=== PATIENT | male | born 1960 | race Caucasian/White ===

== ENCOUNTER 2021-06-14 08:05 | Outpatient (CLI) | payer BC, SELFPAY ==
[2021-06-14 10:20] LABS: ALB/GLOB Ratio 1.3 RATIO (0.9-2.4); AST(SGOT) 20 U/L (15-37); Alanine Aminotransfer ALT/SGPT 24 U/L (16-61); Albumin, Serum 4.3 g/dL (3.2-5.0); Alkaline Phosphatase 117 U/L (45-117); Anion Gap 3 (5-15); BUN 15 mg/dL (7-18); BUN/Creat Ratio 14.7 RATIO (10-20); CRP < 2.90 mg/L (0.0-3.0); Calcium,Total 8.9 mg/dL (8.5-10.1); Chloride 105 mmol/L (98-107); Creatinine, Serum 1.02 mg/dL (0.70-1.30); EST Glomerular Filtration Rate 78 mL/min (>60); Est Glom Filt Rate - Afr Amer 95 mL/min (>60); Globulin 3.4 g/dL (2.2-4.2); Glucose 95 mg/dL (74-106); Potassium 3.6 mmol/L (3.5-5.1); Protein, Total 7.7 g/dL (6.4-8.2); Rheumatoid Factor < 10.0 IU/mL (<15); Sodium Level 139 mmol/L (136-145)
[2021-06-14 11:00] LABS: Hepatitis B Surface Antibody Reactive; Hepatitis B Surface Antigen Non-Reactive (Nonreactive); Hepatitis C Antibody Non-Reactive (Nonreactive)
[2021-06-14 12:32] LABS: Erythrocyte Sedimentation Rate 14 mm/hr (0-20)
[2021-06-14 12:34] LABS: Absolute Lymphocyte Count 1.24 X10^3/uL (0.83-4.51); Absolute Neutrophil Count 3.7 X10^3/uL (2.0-7.7); Basophil# 0.04 X10^3/uL; Basophil% 0.7 % (0-1); Eosinophil# 0.18 X10^3/uL; Eosinophils% 3.1 % (0-5); Hematocrit 44.7 % (40-54); Hemoglobin 14.7 g/dL (13.0-16.5); Lymphocyte # 1.24 X10^3/ul (0.83-4.51); Lymphocyte % 21.3 % (19-41); Mean Corp Hgb Conc 32.9 g/dL (32-36); Mean Corpuscular Hgb 29.1 pg (27.0-32.0); Mean Corpuscular Volume 88.3 fL (80-94); Mean Platelet Vol. 11.5 fl (6.2-12.0); Monocyte# 0.67 X10^3/uL; Monocyte% 11.5 % (0-10); NRBC Flagged by Analyzer 0 % (0-5); Neutrophil # 3.67 X10^3/uL (2.7-7.7); Neutrophil % 62.9 % (47-70); Platelet Count 280 K/mm3 (150-450); RBC Distribution Width CV 14.1 % (11.6-14.6); RBC Distribution Width SD 45.4 fl (35.1-43.9); Red Blood Count 5.06 M/mm3 (4.6-6.2); White Blood Count 5.8 K/mm3 (4.4-11.0)
[2021-06-15 19:28] LABS: ANTINUCLEAR ANTIBODIES DIRECT Negative (Negative)
[2021-06-18 09:26] LABS: CCP IgG Antibodies 11 units (0-19)
== END 2021-06-14 23:59 | disposition home or self-care (01) ==
LOC: MTLAB 08:09
PROVIDERS: PCP Student in an Organized Health Care Education/Training Program; Referring Provider Internal Medicine Rheumatology; Visit Provider Internal Medicine Rheumatology
DX: M06.4 Inflammatory polyarthropathy (principal); M19.041 Primary osteoarthritis, right hand; M17.0 Bilateral primary osteoarthritis of knee; M18.0 Bilateral primary osteoarthritis of first carpometacarpal joints; M16.0 Bilateral primary osteoarthritis of hip; M47.897 Other spondylosis, lumbosacral region; I10 Essential (primary) hypertension
CPT/HCPCS: 36415; 80053; 85025; 85652; 86038; 86140; 86200; 86431; 86706; 86803; 87340

== ENCOUNTER → 2021-08-29 | Outpatient (CLI) | payer BC, SELFPAY ==
[2021-08-29 10:08] LABS: Absolute Lymphocyte Count 1.38 X10^3/uL (0.83-4.51); Absolute Neutrophil Count 3.1 X10^3/uL (2.0-7.7); Basophil# 0.03 X10^3/uL; Basophil% 0.6 % (0-1); Eosinophils% 3.7 % (0-5); Hematocrit 42.3 % (40-54); Lymphocyte # 1.38 X10^3/ul (0.83-4.51); Lymphocyte % 25.8 % (19-41); Mean Corp Hgb Conc 33.1 g/dL (32-36); Mean Corpuscular Hgb 29.3 pg (27.0-32.0); Mean Corpuscular Volume 88.5 fL (80-94); Mean Platelet Vol. 10.7 fl (6.2-12.0); Monocyte% 11.2 % (0-10); NRBC Flagged by Analyzer 0 % (0-5); Neutrophil # 3.07 X10^3/uL (2.7-7.7); Neutrophil % 57.6 % (47-70); Platelet Count 252 K/mm3 (150-450); RBC Distribution Width CV 14.3 % (11.6-14.6); Red Blood Count 4.78 M/mm3 (4.6-6.2); White Blood Count 5.3 K/mm3 (4.4-11.0)
[2021-08-29 10:37] LABS: ALB/GLOB Ratio 1.1 RATIO (0.9-2.4); AST(SGOT) 20 U/L (15-37); Alanine Aminotransfer ALT/SGPT 28 U/L (16-61); Albumin, Serum 3.6 g/dL (3.2-5.0); Alkaline Phosphatase 94 U/L (45-117); Anion Gap 4 (5-15); BUN 19 mg/dL (7-18); BUN/Creat Ratio 17.8 RATIO (10-20); Calcium,Total 8.7 mg/dL (8.5-10.1); Chloride 104 mmol/L (98-107); Creatinine, Serum 1.07 mg/dL (0.70-1.30); EST Glomerular Filtration Rate 74 mL/min (>60); Est Glom Filt Rate - Afr Amer 90 mL/min (>60); Globulin 3.4 g/dL (2.2-4.2); Glucose 92 mg/dL (74-106); Potassium 3.8 mmol/L (3.5-5.1); Sodium Level 139 mmol/L (136-145)
== END | disposition home or self-care (01) ==
LOC: MTLAB 09:10
PROVIDERS: PCP Student in an Organized Health Care Education/Training Program; Referring Provider Internal Medicine Rheumatology; Visit Provider Internal Medicine Rheumatology
DX: M06.4 Inflammatory polyarthropathy (principal); M19.041 Primary osteoarthritis, right hand; M17.0 Bilateral primary osteoarthritis of knee; M18.0 Bilateral primary osteoarthritis of first carpometacarpal joints; M16.0 Bilateral primary osteoarthritis of hip; M47.897 Other spondylosis, lumbosacral region; I10 Essential (primary) hypertension; F41.9 Anxiety disorder, unspecified; Z79.899 Other long term (current) drug therapy
CPT/HCPCS: 36415; 80053; 85025

== ENCOUNTER → 2021-11-01 | Outpatient (CLI) | payer BC, SELFPAY ==
[2021-11-01 14:58] LABS: Absolute Lymphocyte Count 1.52 X10^3/uL (0.83-4.51); Absolute Neutrophil Count 5.9 X10^3/uL (2.0-7.7); Basophil# 0.05 X10^3/uL; Basophil% 0.6 % (0-1); Eosinophil# 0.15 X10^3/uL; Eosinophils% 1.8 % (0-5); Hematocrit 43.6 % (40-54); Hemoglobin 14.6 g/dL (13.0-16.5); Lymphocyte # 1.52 X10^3/ul (0.83-4.51); Lymphocyte % 17.8 % (19-41); Mean Corp Hgb Conc 33.5 g/dL (32-36); Mean Corpuscular Hgb 30.6 pg (27.0-32.0); Mean Corpuscular Volume 91.4 fL (80-94); Monocyte# 0.79 X10^3/uL; Monocyte% 9.3 % (0-10); NRBC Flagged by Analyzer 0 % (0-5); Neutrophil # 5.93 X10^3/uL (2.7-7.7); Neutrophil % 69.6 % (47-70); Platelet Count 312 K/mm3 (150-450); RBC Distribution Width CV 14.7 % (11.6-14.6); RBC Distribution Width SD 49.2 fl (35.1-43.9); Red Blood Count 4.77 M/mm3 (4.6-6.2); White Blood Count 8.5 K/mm3 (4.4-11.0)
[2021-11-01 15:19] LABS: ALB/GLOB Ratio 1.2 RATIO (0.9-2.4); AST(SGOT) 17 U/L (15-37); Alanine Aminotransfer ALT/SGPT 28 U/L (16-61); Albumin, Serum 4.1 g/dL (3.2-5.0); Alkaline Phosphatase 105 U/L (45-117); Anion Gap 5 (5-15); BUN 18 mg/dL (7-18); BUN/Creat Ratio 16.5 RATIO (10-20); Calcium,Total 9.2 mg/dL (8.5-10.1); Chloride 102 mmol/L (98-107); Creatinine, Serum 1.09 mg/dL (0.70-1.30); EST Glomerular Filtration Rate 72 mL/min (>60); Est Glom Filt Rate - Afr Amer 88 mL/min (>60); Globulin 3.3 g/dL (2.2-4.2); Glucose 89 mg/dL (74-106); Potassium 4.1 mmol/L (3.5-5.1); Protein, Total 7.4 g/dL (6.4-8.2); Sodium Level 138 mmol/L (136-145)
== END | disposition home or self-care (01) ==
LOC: MTLAB 11:48
PROVIDERS: PCP Student in an Organized Health Care Education/Training Program; Referring Provider Internal Medicine Rheumatology; Visit Provider Internal Medicine Rheumatology
DX: M06.4 Inflammatory polyarthropathy (principal); Z79.899 Other long term (current) drug therapy; M19.041 Primary osteoarthritis, right hand; M17.0 Bilateral primary osteoarthritis of knee; M18.0 Bilateral primary osteoarthritis of first carpometacarpal joints; M16.0 Bilateral primary osteoarthritis of hip; M47.897 Other spondylosis, lumbosacral region; I10 Essential (primary) hypertension; F41.9 Anxiety disorder, unspecified; F32.A Depression, unspecified
CPT/HCPCS: 36415; 80053; 85025

== ENCOUNTER → 2021-12-24 | Outpatient (CLI) | payer BC, SELFPAY ==
[2021-12-24 12:15] LABS: Absolute Lymphocyte Count 1.45 X10^3/uL (0.83-4.51); Absolute Neutrophil Count 4.9 X10^3/uL (2.0-7.7); Basophil# 0.04 X10^3/uL; Basophil% 0.6 % (0-1); Eosinophil# 0.15 X10^3/uL; Eosinophils% 2.1 % (0-5); Hematocrit 43.7 % (40-54); Lymphocyte # 1.45 X10^3/ul (0.83-4.51); Lymphocyte % 20.3 % (19-41); Mean Corpuscular Hgb 29.4 pg (27.0-32.0); Mean Corpuscular Volume 91.8 fL (80-94); Mean Platelet Vol. 11.3 fl (6.2-12.0); Monocyte# 0.57 X10^3/uL; NRBC Flagged by Analyzer 0 % (0-5); Neutrophil # 4.89 X10^3/uL (2.7-7.7); Neutrophil % 68.2 % (47-70); Platelet Count 268 K/mm3 (150-450); RBC Distribution Width CV 14.2 % (11.6-14.6); RBC Distribution Width SD 47.7 fl (35.1-43.9); Red Blood Count 4.76 M/mm3 (4.6-6.2); White Blood Count 7.2 K/mm3 (4.4-11.0)
[2021-12-24 12:53] LABS: ALB/GLOB Ratio 1.2 RATIO (0.9-2.4); AST(SGOT) 22 U/L (15-37); Alanine Aminotransfer ALT/SGPT 31 U/L (16-61); Alkaline Phosphatase 102 U/L (45-117); Anion Gap 6 (5-15); BUN 21 mg/dL (7-18); BUN/Creat Ratio 18.9 RATIO (10-20); Calcium,Total 9.1 mg/dL (8.5-10.1); Chloride 102 mmol/L (98-107); Creatinine, Serum 1.11 mg/dL (0.70-1.30); EST Glomerular Filtration Rate 71 mL/min (>60); Est Glom Filt Rate - Afr Amer 86 mL/min (>60); Globulin 3.3 g/dL (2.2-4.2); Glucose 89 mg/dL (74-106); Potassium 4.2 mmol/L (3.5-5.1); Protein, Total 7.3 g/dL (6.4-8.2); Sodium Level 138 mmol/L (136-145)
== END | disposition home or self-care (01) ==
LOC: MTLAB 10:45
PROVIDERS: PCP Student in an Organized Health Care Education/Training Program; Referring Provider Internal Medicine Rheumatology; Visit Provider Internal Medicine Rheumatology
DX: M06.4 Inflammatory polyarthropathy (principal); Z79.899 Other long term (current) drug therapy
CPT/HCPCS: 36415; 80053; 85025

== ENCOUNTER 2023-01-05 14:48 | Emergency (ER) | payer MEDICARE, SELFPAY ==
[2023-01-05 14:50] VITALS: BP 139/76; PULSE 78; RESP 14; TEMP 36.4; O2SAT 98; BMI 33.4
--- NOTE | 2023-01-05 15:03 | CT_ITS ---
INDICATION: injury EXAMINATION: CT CERVICAL SPINE - CT Spine Cervical W/O Contrast Injection TECHNIQUE: Helically acquired images were obtained of the cervical spine. 2D reformatted images were reviewed. A radiation dose optimization technique was used for this scan. IV Contrast dosage and agent: None. RADIATION DOSAGE (If Supplied By Facility): CTDIvol = ( 19.87 ) mGy, DLP = ( 335.69 ) mGycm COMPARISON: No relevant prior comparison study available FINDINGS: VERTEBRAE: No fracture or traumatic subluxation. No discrete lytic or blastic abnormality. Mild cervical kyphosis. Normal craniocervical junction and cervicothoracic junction. DISCS and SPINAL CANAL: Loss of disc space height throughout the cervical spine spine, most likely from seat 3 inferiorly, with accompanying endplate osteophytes and facet arthropathy leading to varying degrees of foraminal narrowing throughout. No critical stenosis. NECK SOFT TISSUES: No prevertebral soft tissue swelling. There is no cervical adenopathy. LUNG APICES: Clear. CT/Spine Cervical without Contras IMPRESSION: No evidence of acute cervical spinal fracture or spondylolisthesis. Cervical spondylosis as described. Electronically Signed: Hong Carmen MD at 15:55 EDT ,
--- NOTE | 2023-01-05 15:03 | CT_ITS ---
INDICATION: injury EXAMINATION: CT BRAIN - CT Head or Brain W/O Contrast Injection TECHNIQUE: Multiple axial images were obtained of the head without intravenous contrast. A radiation dose optimization technique was used for this scan. IV Contrast dosage and agent: None. RADIATION DOSAGE (If Supplied By Facility): CTDIvol = ( 47.06 ) mGy, DLP = ( 819.74 ) mGycm COMPARISON: No relevant prior comparison study available FINDINGS: BRAIN PARENCHYMA: No intra- or extra-axial hemorrhage. No evidence of acute infarct. No intracranial mass or mass effect. There is preservation of the kidd/white matter interface. Posterior fossa structures are unremarkable. No parenchymal abnormality. CSF SPACES: No cerebral volume loss. No hydrocephalus. Basal cisterns are patent. CALVARIUM, SKULL BASE, PARANASAL SINUSES AND MASTOID AIR CELLS: The mastoid air cells and visualized paranasal sinuses are well aerated. The calvarium is intact. No discrete lytic or blastic abnormalities. ORBITS: Both globes, extraocular muscles, optic nerves and retrobulbar fat appear unremarkable. CT/Brain/Head without Contrast IMPRESSION: No acute intracranial finding. Electronically Signed: Hong Carmen MD at 15:53 EDT ,
--- NOTE | 2023-01-05 15:05 | EDS_ITS ---
HPI History of Present Illness Chief Complaint: Fall Informant: patient and spouse/S.O. Onset/Context/Timing Onset: Today Narrative Narrative: Patient presents after a fall at home. He was trying to pull [employer] fence out of the ground when he lost his balance and fell forward striking his head against the side of the house. He does have a headache and some neck pain. He also injured his left shoulder and thinks he may have dislocated it. He is right-hand dominant. He is not on anticoagulants. [facility] Medical History (Updated 01/05/23 @ 16:[address] Beth Marley MD) Hypertension Migraines Home Medications hydrocodone-acetaminophen 5-325mg 5mg-325mg 1 tab PO Q6H PRN PRN Pain 3 days #12 TABLETS 01/05/23 [Rx Last Taken Unknown] Allergy/AdvReac Type Severity Reaction Status Date / Time No Known Allergies Allergy Verified 01/05/23 14:50 Social History Smoking Status: Never smoker ROS ROS ED Constitutional Constitutional ED: Denies chills or fever(s) Eyes Eyes: Denies discharge from eye(s) ENT ENT ED: Denies discharge from eye(s), rhinorrhea or sore throat Cardiovascular Cardiovascular: Denies chest pain or palpitations Respiratory/Chest Respiratory/Chest: Denies cough or dyspnea Gastrointestinal Gastrointestinal: Denies abdominal pain, nausea or vomiting Musculoskeletal Musculoskeletal: Reports extremity pain and neck pain; Denies back pain Integumentary Denies Abrasions or rash Neurologic Neurologic: Reports headache(s); Denies weakness Psychiatric Psychiatric: Denies anxiety or depression Allergic/Immunologic Allergic/Immunologic ED: Denies lip swelling or urticaria EXAM Physical Exam Const Vital Signs: 01/05/23 14:50 01/05/23 15:17 Temperature 97.6 F L Temperature Source Temporal Pulse Rate 78 Respiratory Rate 14 Respiratory Effort Normal Blood Pressure 139/76 H Blood Pressure Mean 97 Pulse Ox 98 Oxygen Delivery Method Room Air Positive well nourished and well developed General Appearance ED: well developed HEENT atraumatic Eyes PERRL and EOMs intact bilaterally Chest Wall inspection of chest normal and palpation of chest normal Resp normal respiratory effort and clear to auscultation bilaterally Cardio regular rhythm Rate: regular rate GI non-tender Palpation: soft Back/Spine Back/Spine Narrative: Mild C-spine tenderness. No step-offs. No thoracic or lumbar tenderness. Extremity Extremity Narrative: Tenderness to the left shoulder and humeral head appears to be anteriorly located. Able to wiggle fingers on left hand. Good cap refill and sensation. Neuro oriented x3 Psych mental status grossly normal Skin no rashes or lesions noted MDM MDM MDM Narrative Medical decision making narrative: IV line established. Patient given morphine and Zofran for pain control. Left shoulder x-rays obtained to evaluate for fracture, dislocation. CT scan of the head and C-spine obtained to evaluate for fracture, bleed. Radiography Diagnostic Testing: Clinical Impression(s) from Imaging Studies Brain CT 01/05/23 15:03 IMPRESSION: No acute intracranial finding. Electronically Signed: Hong Carmen MD at 15:53 EDT , Cervical Spine CT 01/05/23 15:03 IMPRESSION: No evidence of acute cervical spinal fracture or spondylolisthesis. Cervical spondylosis as described. Electronically Signed: Hong Carmen MD at 15:55 EDT , Shoulder X-Ray 01/05/23 15:38 IMPRESSION: No fracture or malalignment. Degenerative changes as described. Electronically Signed: Hong Carmen MD at 16:08 EDT , Treatment and Re-Evaluation Narrative: CT scan of the head and neck read by radiology reveals no evidence of acute fracture or bleed. Left shoulder x-rays per my interpretation reveal no obvious dislocation or fracture. Radiology interpretation is reviewed and agrees. Patient be given a prescription for [place]. He will be placed in a sling and swath. He will follow-up with [facility] who he has seen in the past. Return instructions given. Discharge Plan Triage Chief Complaint: Fall ED Provider: Beth Marley Dx/Rx/DC Orders Clinical Impression: CHI (closed head injury), Fall, Sprain of left shoulder Instructions: ED Mechanical Fall, ED Head Injury (Adult), ED Shoulder Sprain Prescriptions: New hydrocodone-acetaminophen 5-325 mg tablet 1 tab PO Q6H PRN PRN (Reason: Pain) 3 Days Qty: 12 0RF Primary Care Provider: Robbie Zuniga Referrals: Robbie Zuniga DO [Primary Care Provider] - Joey Felix MD [Med Staff - Active Staff] - 5-7 Days Disposition Disposition: Home, Self Care
[2023-01-05] MEDS: Ondansetron 4 MG/2 ML Vial IV (15:20)
[2023-01-05] MEDS: Morphine 4 MG/ML Syringe IV (15:20)
--- NOTE | 2023-01-05 15:38 | RAD_ITS ---
INDICATION: injury EXAMINATION/TECHNIQUE: X-RAY - LEFT XR Shoulder Min 2 Views 4 VIEWS COMPARISON: No relevant prior comparison study available FINDINGS: SOFT TISSUES: No soft tissue swelling or gas. No radiopaque foreign body. BONES/JOINTS: No acute fracture or subluxation.. Normal alignment. Moderate marginal osteophyte of the acromioclavicular joint. Small marginal sides of the glenohumeral joint.. No sclerotic or destructive changes observed. RAD/Shoulder min 2 Views IMPRESSION: No fracture or malalignment. Degenerative changes as described. Electronically Signed: Hong Carmen MD at 16:08 EDT ,
== END 2023-01-05 16:51 | disposition home or self-care (01) ==
PROVIDERS: Emergency Provider Emergency Medicine; PCP Student in an Organized Health Care Education/Training Program; Visit Provider Emergency Medicine
DX: S09.90XA Unspecified injury of head, initial encounter (principal); I10 Essential (primary) hypertension; S43.402A Unspecified sprain of left shoulder joint, initial encounter; W01.198A Fall on same level from slipping, tripping and stumbling with subsequent striking against other object, initial encounter; Y93.89 Activity, other specified; Y92.008 Other place in unspecified non-institutional (private) residence as the place of occurrence of the external cause
CPT/HCPCS: 70450; 72125; 73030; 99282; J2405

== ENCOUNTER 2024-04-29 21:41 | Inpatient (IN) | payer MEDICARE, SELFPAY ==
[2024-04-29 21:41] VITALS: BP 148/77; PULSE 95; RESP 20; TEMP 36.6; O2SAT 94; BMI 39.2
--- NOTE | 2024-04-29 22:05 | EKG12_ITS ---
Test Reason : SOB Blood Pressure : */* mmHG Vent. Rate : 87 BPM Atrial Rate : 87 BPM P-R Int : 130 ms QRS Dur : 88 ms QT Int : 328 ms P-R-T Axes : 45 26 68 degrees QTcB Int : 394 ms Normal sinus rhythm Nonspecific T wave abnormality Abnormal ECG Confirmed by HUSEYIN HOLRBOOK, RAMESH ([id number]), marketing editor MERY STANLEY ([id number]) on 05/02/2024 7:05:56 AM Referred By: Hong Chiu Confirmed By: RAMESH FONTANEZ MD
--- NOTE | 2024-04-29 22:06 | EDS_ITS ---
HPI History of Present Illness Chief Complaint: Asthma Informant: patient and spouse/S.O. Narrative Narrative: 64-year-old male presents saying I am having an asthma attack. However after further discussion, I discovered that the patient has never been diagnosed with asthma. He also states he has never been diagnosed with any other lung or heart problems that he knows of. states for the past week he has been wheezing, it has been worse in the past 3 days especially today with any exertion. He states it is worse with lying down as well. He denies dyspnea, fevers, chills, or feeling like he has a cold, although he states he occasionally has a non productive cough. He then states this is the worst it has ever been. Therefore I asked if he has had this for a long time, he states off and on. He has never seen a physician for this issue. He states yesterday he had a right shoulder replacement. He states his wheezing was an issue in the operating room before they sedated him and they needed to give him oxygen and do some things to get him safely sedated. She states after surgery for the rest of the day yesterday, his breathing was not as bad, but today it is worse again. No other new symptoms no leg edema, no GI symptoms or abdominal pain. [facility] Medical History Anxiety disorder, unspecified MDD (major depressive disorder) Skin cancer Osteoarthritis Hearing problem Bone fracture History of back problems Arthritis Alcohol abuse Migraines Hypertension Home Medications ?Medication ?Instructions ?Recorded ?Last Taken ?Type gabapentin 100 mg capsule 100 mg PO TID 08/12/23 Unkno wn History gabapentin 800 mg tablet 800 mg PO TID 08/12/23 Unkno wn History losartan 100 1 tab PO QDAY 08/12/23 Unkno wn History mg-hydrochlorothiazide 25 mg tablet meclizine 12.5 mg tablet 12.5 mg PO DAILY PRN vertigo 08/12/23 Unknown History meloxicam 15 mg tablet 15 mg PO 08/12/23 Unknown Hi story tizanidine 4 mg tablet 4 mg PO TID 08/12/23 Unknown History bupropion HCl 100 mg tablet 200 mg (2 x 100 mg) PO BID #120 10/21/23 Unknown Rx tabs duloxetine 30 mg capsule,delayed 30 mg PO QDAY 4 Unknown History release duloxetine 60 mg capsule,delayed 60 mg PO QDAY 4 Unknown History release mirtazapine 15 mg tablet 15 mg PO QHS #30 tabs Unknown Rx albuterol sulfate 90 mcg/actuation inhalation 04/29/24 Unknown History aerosol inhaler aspirin 81 mg tablet,delayed 81 mg PO DAILY 04/29/24 U nknown History release (Adult Aspirin Regimen) doxycycline monohydrate 100 mg 100 mg PO Q12H 04/29/24 Unknown History capsule mupirocin 2 % topical ointment topical 04/29/24 Unknow n History oxycodone 5 mg tablet 5 mg PO 04/29/24 Unknown His tory tamsulosin 0.4 mg capsule 0.4 mg PO QHS 04/29/24 Unkno wn History Allergy/AdvReac Type Severity Reaction Status Date / Time No Known Allergies Allergy Verified 04/29/24 21:45 Family History Other Alcoholism Arthritis Cancer Depression Mental disorder Myocardial infarction Respiratory disease Social History Smoking Status: Never smoker alcohol intake: former substance use type: does not use ROS ROS ED Constitutional Constitutional ED: Denies chills or fever(s) Eyes Eyes: Denies change in vision or diplopia ENT ENT ED: Denies ear pain, rhinorrhea or sore throat Cardiovascular Cardiovascular: Reports orthopnea; Denies chest pain or palpitations Respiratory/Chest Respiratory/Chest: Reports dyspnea, dyspnea on exertion and orthopnea; Denies cough Gastrointestinal Gastrointestinal: Denies abdominal pain, diarrhea, nausea or vomiting Genitourinary Genitourinary ED: Denies dysuria or hematuria Musculoskeletal Musculoskeletal: Denies back pain or neck pain Integumentary Denies abscess or rash Neurologic Neurologic: Denies headache(s), paresthesias or weakness EXAM Physical Exam Const Vital Signs: 04/29/24 21:41 04/29/24 22:13 04/29/24 23:01 Temperature 97.8 F Temperature Source Oral Pulse Rate 95 92 Respiratory Rate 20 H 20 H Respiratory Effort Respiratory Depth Respiratory Pattern Tachypnea Blood Pressure 148/77 H Blood Pressure Mean 100 Pulse Ox 94 94 Oxygen Delivery Method Room Air Room Air Oxygen Flow Rate (L/min) 04/29/24 23:04 04/29/24 23:41 04/30/24 00:18 Temperature Temperature Source Pulse Rate 84 Respiratory Rate 18 Respiratory Effort Normal Respiratory Depth Normal Respiratory Pattern Normal Blood Pressure 128/66 H Blood Pressure Mean 86 Pulse Ox 90 87 Oxygen Delivery Method Room Air Room Air Room Air Oxygen Flow Rate (L/min) 04/30/24 00:23 04/30/24 00:24 Temperature Temperature Source Pulse Rate 84 Respiratory Rate 15 Respiratory Effort Respiratory Depth Respiratory Pattern Blood Pressure 154/64 H Blood Pressure Mean 94 Pulse Ox 96 95 Oxygen Delivery Method Nasal Cannula Venturi Mask Oxygen Flow Rate (L/min) 2 2 Positive well nourished and well developed General Appearance ED: well developed and NAD HEENT Reports moist mucous membranes normocephalic and atraumatic Eyes PERRL and EOMs intact bilaterally Neck full ROM, no lymphadenopathy, supple, no meningeal signs and no JVD Resp normal respiratory effort and clear to auscultation bilaterally Cardio regular rate, regular rhythm and no murmurs Rate: Negative for bradycardia or tachycardic GI non-tender and non-distended Auscultation: normoactive bowel sounds Palpation: soft Back/Spine no CVA tenderness General Back: other FROM Extremity normal to inspection General Extremety ED: Negative for edema, pulses abnormal or tenderness General Extremity: Negative for edema or pulses abnormal Neuro oriented x3, CN's II-XII intact bilaterally and no sensory deficits noted Sensorium / Orientation: awake and alert Motor Exam: strength 5/5 throughout Skin no rashes or lesions noted and no wounds MDM MDM MDM Narrative Medical decision making narrative: The patient's lungs are clear and other than mild hypertension, for which she takes medication, his vital signs are normal here at rest and he is conversive in full sentences. I asked him if he felt like he was wheezing right now, he states no not unless he walks. I advised him that the etiology of this is unclear, but it may not be asthma as he was calling that since he has never been diagnosed with asthma before, although reactive airway disease is in the differential. I advised him that I recommend testing tonight for cardiac etiologies, including blood work, and to include evaluation for possible congestive heart failure, as well as pulmonary embolus for which she does not have specific risk but again his lungs are clear. His response to all of this was I do not need testing for any of that since I just had all of that tested for. Patient is referring to preoperative medical clearance testing. He understands that we are not doing the same testing. I did look for that testing and I am not able to find it; even when entering his middle initial, there are so many Butch Jud[employer] and [employer] that it stops listing when he gets to 200 and he is not in that list. The patient's chest x-ray is clearly abnormal. Appears to show pulmonary edema versus bibasilar infiltrates on my interpretation, 2 views. Radiology in agreement, basically it is limited due to poor inspiration, and they do not appear to be able to narrow down. His kidney function is down compared to his past numbers. His troponin is normal his EKG looks fine. I ordered a BNP but the labs machine is down and they are not able to run it tonight. His EGFR is just high enough to be able to perform CT angiography since his D-dimer is elevated, which may be due to PE or due to surgery. He presumably has not had acute CHF if he just had a presurgical echocardiogram that was unremarkable, so I am going to give him a liter of fluids, and perform CT angiography of the chest, to rule out PE and to hopefully obtain more information to see if it helps us determine why his x-ray is abnormal and why he is dyspneic. Meanwhile his pulse ox is 88% on room air, with walking 10-20 feet, he stays around 90% does not go higher than that. He is not on home oxygen. We put him on 2 L here. I reviewed the CTA of the chest as well as results which I agree with, it favors atelectasis, no PE, no pneumonia, and less likely CHF. Later he ambulated about 40 feet to the bathroom and was hypoxic at 88% on room air and very wheezy. He said the albuterol aerosol given earlier helped some giving him another and I discussed with hospitalist for admission because he is hypoxic and has ASHLEY. He is in agreement and request that we add a respiratory viral panel and start him on steroids which was done as well. History & Record Review Additional record(s) reviewed:: No prior records (records not available in [employer]) Lab Data Attestation: I reviewed the patient's lab results. Labs: Laboratory Results - last 24 hr 01/31/25 22:35 WBC 10.9 RBC 4.05 L Hgb 11.7 L Hct 35.3 L MCV 87.2 MCH 28.9 MCHC 33.1 RDW Std Deviation 44.4 H RDW Coeff of [place] 13.9 Plt Count 232 MPV 10.5 Immature Gran % (Auto) 1.000 H Neut % (Auto) 73.6 H Lymph % (Auto) 14.1 L [place] % (Auto) 10.2 H Eos % (Auto) 0.6 Baso % (Auto) 0.5 Absolute Neuts (auto) 8.0 H Absolute Lymphs (auto) 1.54 Nucleated RBC % 0 D-Dimer Quant (PE/DVT) 1.02 H* Sodium 139 Potassium 3.4 L Chloride 105 Carbon Dioxide 27.0 Anion Gap 8 BUN 38 H Creatinine 1.95 H Estim Creat Clear Calc 46.32 Est GFR (MDRD) Af Amer 44 L Est GFR (MDRD) Non-Af 37 L BUN/Creatinine Ratio 19.5 Glucose 122 H Calcium 8.3 L Troponin I High Sens 24 Radiography Diagnostic Testing: Clinical Impression(s) from Imaging Studies Chest X-Ray 04/29/24 22:40 IMPRESSION: As above. Reading Location: [facility] Chest CTA 04/29/24 23:45 IMPRESSION: 1. No evidence of pulmonary embolism. 2. Elevated right hemidiaphragm. 3. Intermediate lung volumes. Patchy airspace disease within the right lower lobe, suggest atelectasis. 4. Evidence of recent shoulder arthroplasty on the right, as described. 5. Additional findings, as detailed above One or more dose reduction techniques were used (e.g., Automated exposure control, adjustment of the mA and/or kV according to patient size, use of iterative reconstruction technique). Reading [facility] Rhythm Strip Rhythm Strip: Sinus Rhythm Rate: 90 Ectopy: None EKG Initial EKG: Attestation: I personally reviewed and interpreted this EKG as follows: Interpretation: Sinus Rhythm, No Acute Injury Pattern and Non-Specific ST Changes Comments: Nml axis & intervals; nml EKG Management Discussion w/another healthcare provider: Hospitalist Discharge Plan Triage Chief Complaint: Asthma ED Provider: Chuck Tan Dx/Rx/DC Orders Prescriptions: No Action tizanidine 4 mg tablet 4 mg PO TID meloxicam 15 mg tablet 15 mg PO gabapentin 800 mg tablet 800 mg PO TID gabapentin 100 mg capsule 100 mg PO TID losartan-hydrochlorothiazide 100-25 mg tablet 1 tab PO QDAY meclizine 12.5 mg tablet 12.5 mg PO DAILY PRN (Reason: vertigo ) bupropion HCl 100 mg tablet 200 mg PO BID Qty: 120 2RF Rx Instructions: 2 by mouth every am and 2 by mouth every pm duloxetine 60 mg capsule,delayed release(DR/EC) 60 mg PO QDAY duloxetine 30 mg capsule,delayed release(DR/EC) 30 mg PO QDAY mirtazapine 15 mg tablet 15 mg PO QHS Qty: 30 2RF aspirin [Adult Aspirin Regimen] 81 mg tablet,delayed release (DR/EC) 81 mg PO DAILY oxycodone 5 mg tablet 5 mg PO doxycycline monohydrate 100 mg capsule 100 mg PO Q12H albuterol sulfate 90 mcg/actuation HFA aerosol inhaler INHALATION Patient Comments: [NO ORIGINAL SIG] tamsulosin 0.4 mg capsule 0.4 mg PO QHS mupirocin 2 % ointment topical Primary Care Provider: Robbie Zuniga Print Language: Malay
[2024-04-29] MEDS: Albuterol 2.5 MG/3 ML VIAL.NEB. INHALATION (22:12)
[2024-04-29 22:13] VITALS: PULSE 92; RESP 20
--- NOTE | 2024-04-29 22:40 | RAD_ITS ---
PROCEDURE: CHEST PA AND LATERAL REASON FOR EXAM: Cough TECHNIQUE: Single frontal image including the chest and abdomen. COMPARISON: None. FINDINGS: Cardiomediastinal silhouette poorly evaluated. Bibasilar airspace opacities right worse than right with possible small right pleural effusion. Apical lordotic view is suboptimal. No pneumothorax. RAD/Chest PA and Lateral IMPRESSION: As above. Reading Location: [facility]
[2024-04-29 22:48] LABS: Absolute Lymphocyte Count 1.54 X10^3/uL (0.83-4.51); Basophil# 0.06 X10^3/uL; Basophil% 0.5 % (0-1); Eosinophil# 0.07 X10^3/uL; Eosinophils% 0.6 % (0-5); Hematocrit 35.3 % (40-54); Hemoglobin 11.7 g/dL (13.0-16.5); Lymphocyte # 1.54 X10^3/ul (0.83-4.51); Lymphocyte % 14.1 % (19-41); Mean Corp Hgb Conc 33.1 g/dL (32-36); Mean Corpuscular Hgb 28.9 pg (27.0-32.0); Mean Corpuscular Volume 87.2 fL (80-94); Mean Platelet Vol. 10.5 fl (6.2-12.0); Monocyte# 1.11 X10^3/uL; Monocyte% 10.2 % (0-10); NRBC Flagged by Analyzer 0 % (0-5); Neutrophil # 8.03 X10^3/uL (2.7-7.7); Neutrophil % 73.6 % (47-70); Platelet Count 232 K/mm3 (150-450); RBC Distribution Width CV 13.9 % (11.6-14.6); RBC Distribution Width SD 44.4 fl (35.1-43.9); Red Blood Count 4.05 M/mm3 (4.6-6.2); White Blood Count 10.9 K/mm3 (4.4-11.0)
[2024-04-29 23:01] VITALS: O2SAT 94
[2024-04-29 23:03] LABS: D-Dimer Quantitative (DVT/PE) 1.02 FEU/ug/m (0.27-0.49)
[2024-04-29 23:04] VITALS: O2SAT 95
[2024-04-29 23:10] LABS: Anion Gap 8 (5-15); BUN 38 mg/dL (7-18); BUN/Creat Ratio 19.5 RATIO (10-20); Calcium,Total 8.3 mg/dL (8.5-10.1); Chloride 105 mmol/L (98-107); Creatinine, Serum 1.95 mg/dL (0.70-1.30); EST Glomerular Filtration Rate 37 mL/min (>60); Est Glom Filt Rate - Afr Amer 44 mL/min (>60); Estimated Creatinine Clearance 46.32 ml/min; Glucose 122 mg/dL (74-106); Potassium 3.4 mmol/L (3.5-5.1); Sodium Level 139 mmol/L (136-145); Troponin-I HS 24 pg/mL (3.0-78.0)
[2024-04-29 23:12] VITALS: O2SAT 90
[2024-04-29] MEDS: 0.9% Normal Saline (1000mL) 1,000 ML 999 ML IV (23:34)
[2024-04-29 23:41] VITALS: BP 128/66; PULSE 84; RESP 18; O2SAT 90
--- NOTE | 2024-04-29 23:45 | CT_ITS ---
PROCEDURE: CTA CHEST W CONTRAST REASON FOR EXAM: Recent surgery. Shortness of breath. Elevated D-dimer. TECHNIQUE: CTA imaging of the chest with intravenous contrast. 3D reconstructions. CONTRAST: 97 mL of Isovue 370 COMPARISON: Correlation with chest x-ray performed 04/29/2024 FINDINGS: Hardware: Bilateral shoulder arthroplasties are noted, with associated streak artifact. Soft tissue gas overlies the right shoulder, with soft tissue edema, consistent with recent postsurgical changes. Lymph nodes: No mediastinal hilar or left axillary lymphadenopathy. Limited assessment of the right axilla secondary to streak artifact. Heart: Normal heart size. No pericardial effusion. Thoracic Aorta: No thoracic aortic aneurysm or dissection. Pulmonary Vessels: No evidence of acute pulmonary emboli through the major subsegmental branches. Lungs and Airways: Elevated right hemidiaphragm. Intermediate lung volumes. Patchy airspace disease within the right lower lobe, suggest atelectasis. Trace atelectasis within the lingula. Remaining lung markings otherwise appears clear. Pleura: No pleural effusion. No pneumothorax. Upper Abdomen: Visualized portions of the upper abdominal viscera are unremarkable. Bones: Spondylotic changes throughout the thoracic spine. CT/CTA Chest W/WO Contrast IMPRESSION: 1. No evidence of pulmonary embolism. 2. Elevated right hemidiaphragm. 3. Intermediate lung volumes. Patchy airspace disease within the right lower l obe, suggest atelectasis. 4. Evidence of recent shoulder arthroplasty on the right, as described. 5. Additional findings, as detailed above One or more dose reduction techniques were used (e.g., Automated exposure contr ol, adjustment of the mA and/or kV according to patient size, use of iterative reconstruction technique). Reading Location: [facility]
[2024-04-30] VITALS (23 sets, daily range): BP systolic 118–163; BP diastolic 64–89; PULSE 75–89; RESP 15–28; TEMP 36.3–36.9; O2SAT 87–98; BMI 40.1
--- NOTE | 2024-04-30 01:19 | PCM.HP.STD ---
[facility] - General General Date of Admission: 04/30/24 Date of Service: 04/30/24 Chief Complaint: SOB and Wheezing. HPI Narrative YORDAN JUDD, is a 64 M with a past medical history of essential hypertension; on losartan-hydrochlorothiazide, obesity; with BMI of 39.3 this admission, chronic smokeless tobacco abuse (but no history of smoking), history of EtOH abuse; quit ~6 years ago, neuropathy; on gabapentin TID, depression with anxiety; on duloxetine, mirtazapine and bupropion, history of migraine headaches, history of vertigo; on prn meclizine, history of skin cancer; s/p resection, BPH; on tamsulosin, OA; with chronic back pain on meloxicam plus prn tizanidine and very recent Right shoulder surgery yesterday on prn oxycodone who presents to [facility] ER stating, I am having an asthma attack. Mr. Judd reports his symptoms began approximately 1 week prior to admission with a gradual onset of dyspnea on exertion and wheezing that has intensified over the past ~3 days. He states his symptoms are made worse with exertion but not relieved by rest. He denies a history of formally having been diagnosed with asthma in the past -but he does admit to similar previous episodes and he states that this is the worst that is ever been. He states he underwent right shoulder replacement surgery at [facility] yesterday and he was noted to have severe wheezing and hypoxia which delayed his sedation and surgery until he his condition could be improved enough that they could proceed with the procedure. He is notably on 2-week course of oral doxycycline started yesterday which was started to prophylaxis against infection after surgery and also likely due to suspected acute bronchitis with evolving pneumonia but he states his symptoms have not improved with this agent. He states he was using his albuterol inhaler heavily - but it was not helping his symptoms. He denies associated fever, chills, cough, abdominal pain, nausea, vomiting, diarrhea, constipation, dysuria, hematuria, back pain, neck pain or headache but he does admit to orthopnea, dyspnea on exertion and decreased UOP. In the ER he was noted to have a mildly elevated D-dimer of 1.02 present on admission, which was normal when adjusted for age, with patient subsequently undergoing CTA of chest that revealed no evidence of pulmonary embolism with Right hemidiaphragm elevation and patchy airspace disease within the Right lower lobe suggesting atelectasis (versus infiltrate) with evidence of a recent shoulder arthroplasty on the Right along with a chest x-ray that revealed cardiomediastinal silhouette poorly evaluated with bibasilar opacities Right worse than Left with possible small Right pleural effusion. He was then diagnosed with Acute Asthmatic Bronchitis complicated by suspected early RLL Pneumonia that failed outpatient antibiotic treatment with oral doxycycline complicated by clinical evidence of Respiratory Insufficiency with patient requiring 2L NC along with laboratory evidence of ASHELY; with elevated serum creatinine of 1.95 mg/dL and BUN of 38 mg/dL present on admission (up from his previous baseline of 1.1 mg/dL and BUN of 21 mg/dL) suspected to be due to Adverse Drug Reaction to losartan-hydrochlorothiazide compounded by Hypokalemia of 3.4 mmol/L present on admission in the setting of recent Right shoulder replacement and he was then admitted to the general medical floor with telemetric monitoring for a stay that is expected to extend beyond 2 midnights. [facility] Medical History Anxiety disorder, unspecified MDD (major depressive disorder) Skin cancer Osteoarthritis Hearing problem Bone fracture History of back problems Arthritis Alcohol abuse Migraines Hypertension Home Medications ?Medication ?Instructions ?Recorded ?Last Taken ?Type gabapentin 100 mg capsule 100 mg PO TID pain 08/12/23 Unknown History gabapentin 800 mg tablet 800 mg PO TID pain 08/12/23 Unknown History losartan 100 1 tab PO QDAY bp 08/12/23 Unknown History mg-hydrochlorothiazide 25 mg tablet meclizine 12.5 mg tablet 12.5 mg PO DAILY PRN vertigo 08/12/23 Unknown History meloxicam 15 mg tablet 15 mg PO DAILY vertigo 08/12/23 Unknown History tizanidine 4 mg tablet 4 mg PO TID spasm 08/12/23 Unknown History bupropion HCl 100 mg tablet 200 mg (2 x 100 mg) PO BID anxiety 10/21/23 Unknown Rx #120 tabs duloxetine 30 mg capsule,delayed 30 mg PO QDAY mood 03/02/24 Unknown History release duloxetine 60 mg capsule,delayed 60 mg PO QDAY mood 03/02/24 Unknown History release mirtazapine 15 mg tablet 15 mg PO QHS #30 tabs 03/02/24 Unknown Rx albuterol sulfate 90 mcg/actuation 2 puff inhalation Q8H PRN 04/29/24 Unknown History aerosol inhaler bronchospasm aspirin 81 mg tablet,delayed 81 mg PO DAILY blood thinner 04/29/24 Unknown History release (Adult Aspirin Regimen) doxycycline monohydrate 100 mg 100 mg PO Q12H atb 04/29/24 Unknown History capsule oxycodone 5 mg tablet 5 mg PO Q6H PRN pain 04/29/24 Unknown History tamsulosin 0.4 mg capsule 0.4 mg PO QHS bph 04/29/24 Unknown History Allergy/AdvReac Type Severity Reaction Status Date / Time No Known Allergies Allergy Verified 04/29/24 21:45 Family History Other Alcoholism Arthritis Cancer Depression Mental disorder Myocardial infarction Respiratory disease Social History Smoking Status: Never smoker alcohol intake: former substance use type: does not use ROS ROS Narrative Review of Systems: Constitutional: Patient denies fever or chills. Eyes: Patient denies change in vision or discharge from eyes. ENT: Patient denies runny nose, sore throat or ear pain. Resp: Patient admits to dyspnea on exertion that progressed to SOB at rest with wheezing not responsive to his albuterol inhaler as per HPI. CV: Patient admits to orthopnea but he denies chest pain, heart racing, palpitations or lower extremity edema. GI: Patient denies abdominal pain, nausea, vomiting, diarrhea or constipation. : Patient denies dysuria or hematuria. MSK: Patient denies neck pain or back pain. Skin: Patient denies rash, abscess, jaundice or rash. Psych: Patient denies symptoms of uncontrolled depression or anxiety. Neuro: Patient denies headache, paresthesias or focal neurologic deficits. Allergy: Patient denies lip swelling, tongue swelling or urticaria. Hematology: Patient denies easy bleeding or easy bruisability. Endocrinology: Patient denies lip swelling, tongue swelling or urticaria. 14 point review of systems otherwise negative except for positives noted above in HPI. Vital Signs Vital Signs Vital Signs: 04/29/24 21:41 04/29/24 22:13 04/29/24 23:01 Temperature 97.8 F Temperature Source Oral Pulse Rate 95 92 Respiratory Rate 20 H 20 H Respiratory Effort Respiratory Depth Respiratory Pattern Tachypnea Blood Pressure 148/77 H Blood Pressure Mean 100 Pulse Ox 94 94 Oxygen Delivery Method Room Air Room Air Oxygen Flow Rate (L/min) 04/29/24 23:04 04/29/24 23:41 04/30/24 00:18 Temperature Temperature Source Pulse Rate 84 Respiratory Rate 18 Respiratory Effort Normal Respiratory Depth Normal Respiratory Pattern Normal Blood Pressure 128/66 H Blood Pressure Mean 86 Pulse Ox 90 87 Oxygen Delivery Method Room Air Room Air Room Air Oxygen Flow Rate (L/min) 04/30/24 00:23 04/30/24 00:24 Temperature Temperature Source Pulse Rate 84 Respiratory Rate 15 Respiratory Effort Respiratory Depth Respiratory Pattern Blood Pressure 154/64 H Blood Pressure Mean 94 Pulse Ox 96 95 Oxygen Delivery Method Nasal Cannula Venturi Mask Oxygen Flow Rate (L/min) 2 2 Weight Weight: 258 lb 3 oz Body Mass Index (BMI) 39.2 Physical Exam Const alert, oriented x3, no apparent distress, average body habitus and healthy appearing General Appearance: cooperative HEENT normocephalic, head/scalp atraumatic, hearing grossly normal bilaterally and moist oral mucous membranes Eyes PERRL, EOMs intact bilaterally and conjunctivae normal Neck no lymphadenopathy and supple Resp Resp Narrative: Diminished throughout with scattered wheezing and rhonci. Auscultation: rhonchi and wheezes Cardio regular rate and regular rhythm GI normal to inspection, nondistended, normoactive bowel sounds, soft to palpation, non-tender and non-distended GI Narrative: Obese. Extremity no clubbing, cyanosis or edema Extremity Narrative: Evidence of recent Right shoulder surgery with no signs of infection or vascular compromise. Skin Skin Narrative: Patient has no evidence of rash, abscess or jaundice. Neuro oriented x3, CN's II-XII intact bilaterally, moves all extremities and no focal motor deficits Sensorium / Orientation: awake, alert, oriented to person, oriented to place and oriented to time Speech: speech normal Psych affect normal Results Medical Records Data Attestation: I reviewed the patient's medical records Lab / Micro Data Attestation: I reviewed the patient's lab results. 04/29/24 22:35 04/29/24 22:35 Labs: Laboratory Results - last 24 hr 04/29/24 22:35: WBC 10.9, RBC 4.05 L, Hgb 11.7 L, Hct 35.3 L, MCV 87.2, MCH 28.9, MCHC 33.1, RDW Std Deviation 44.4 H, RDW Coeff of Bala 13.9, Plt Count 232, MPV 10.5, Immature Gran % (Auto) 1.000 H, Neut % (Auto) 73.6 H, Lymph % (Auto) 14.1 L, [place] % (Auto) 10.2 H, Eos % (Auto) 0.6, Baso % (Auto) 0.5, Absolute Neuts (auto) 8.0 H, Absolute Lymphs (auto) 1.54, Nucleated RBC % 0, D-Dimer Quant (PE/DVT) 1.02 H*, Sodium 139, Potassium 3.4 L, Chloride 105, Carbon Dioxide 27.0, Anion Gap 8, BUN 38 H, Creatinine 1.95 H, Estim Creat Clear Calc 46.32, Est GFR (MDRD) Af Amer 44 L, Est GFR (MDRD) Non-Af 37 L, BUN/Creatinine Ratio 19.5, Glucose 122 H, Calcium 8.3 L, Troponin I High Sens 24 Imaging Radiology Impression Chest X-Ray 04/29/24 22:40 IMPRESSION: As above. Reading Location: [facility] Chest CTA 04/29/24 23:45 IMPRESSION: 1. No evidence of pulmonary embolism. 2. Elevated right hemidiaphragm. 3. Intermediate lung volumes. Patchy airspace disease within the right lower lobe, suggest atelectasis. 4. Evidence of recent shoulder arthroplasty on the right, as described. 5. Additional findings, as detailed above One or more dose reduction techniques were used (e.g., Automated exposure control, adjustment of the mA and/or kV according to patient size, use of iterative reconstruction technique). Reading [facility]Why[facility] Assessment & Plan Assessment/Plan (1) Acute bronchitis with asthma with acute exacerbation: (2) Pneumonia: QUALIFIERS: Pneumonia type: due to unspecified organism Laterality: bilateral Lung location: unspecified part of lung Qualified Code(s): J18.9 - Pneumonia, unspecified organism (3) Therapy failure due to antibiotic resistance: (4) ASHLEY (acute kidney injury): (5) Hypokalemia: (6) Adverse drug reaction: QUALIFIERS: Encounter type: initial encounter Qualified Code(s): T50.905A - Adverse effect of unspecified drugs, medicaments and biological substances, initial encounter (7) Essential hypertension: (8) Obesity (BMI 30-39.9): (9) Status post total replacement of right shoulder: (10) Tobacco abuse: PLAN: Plan 1. AE Asthma with suspected Bronchitis and early Pneumonia that apparently failed treatment with oral doxycycline - Admit to general medical floor under droplet and contact precautions. Give Solu-Medrol 60 mg IV BID plus start empiric IV ceftriaxone and IV azithromycin. Give scheduled and prn nebulizers. Give Mucinex 600 mg PO BID. Full viral respiratory panel is pending at this time. Give acetaminophen prn for [id number] (level 1-5/10) pain or fever. Give morphine IV prn for severe (level 6-10/10) pain. 2. Respiratory Insufficiency due to #1 - Wean supplemental oxygen as tolerated. 3. Suspected ASHLEY; with elevated serum creatinine of 1.95 mg/dL and BUN of 38 mg/dL present on admission (up from his baseline of 1.1 mg/dL and BUN of 21 mg/dL) complicating #1 & #2 - Aggressively volume-resuscitate and then recheck renal indices in AM to follow trend of expected improvement. We will avoid potentially nephrotoxic agents. 4. Hypokalemia of 3.4 mmol/L present on admission compounding #1 - #3 - Give supplemental KCl and then recheck level in AM to confirm repletion. 5. Adverse Drug Reaction to losartan-hydrochlorothiazide used to treat Essential Hypertension likely causing #3 - Hold this medication and consider starting alternative with less potential nephrotoxicity to minimize potential risk of recurrence. 6. Obesity; with BMI of 39.3 this admission adding to the medical complexity of #1 - #5 - Weight loss will be recommended. Check TSH. This complicates his case and may hamper recovery. 7. Very recent Right shoulder replacement surgery yesterday at [facility] on prn oxycodone postoperative day #1 - Noted. RUE sling is to remain in place constantly for ~2 weeks. 8. Chronic Smokeless Tobacco Abuse adding to the already significant burden of disease outlined from #1 - #7 - Tobacco Cessation was strongly encouraged but this patient is in the precontemplative phase of his addiction with no intention of quitting at this time. 9. History of EtOH abuse; quit ~6 years ago - Noted. 10. Neuropathy; on gabapentin TID - Resume gabapentin as before. 11. Depression with anxiety; on duloxetine, mirtazapine and bupropion - Maintain on current regimen plus give low-dose prn alprazolam for breakthrough symptoms. 12. History of migraine headaches - Noted with no complaints of headache at this time. 13. History of vertigo; on prn meclizine - Continue as previous. 14. History of skin cancer; s/p resection - Noted. 15. BPH; on tamsulosin - Resume tamsulosin. 16. OA; with chronic back pain on meloxicam plus prn tizanidine - Hold meloxicam as it may be contributing to #3. Continue prn tizanidine for muscle spasms. 17. DVT prophylaxis - Heparin 5,000U sq BID plus SCD's. Total time: Approximately (but not less than) 75 minutes. Charges/Coding Visit Charges Inpatient E&M: 86709 Init Hosp L3
[2024-04-30] MEDS: MethylPREDNISolone 125 MG/2 ML Vial IV (01:37)
[2024-04-30] MEDS: Albuterol 2.5 MG/3 ML VIAL.NEB. INHALATION ×3 (01:44→11:53)
[2024-04-30 02:45] LABS: Magnesium 1.9 mg/dL (1.6-2.6)
[2024-04-30] MEDS: 0.9% Normal Saline (1000mL) 1,000 ML 125 ML IV (03:36)
[2024-04-30] MEDS: Potassium Chloride Oral Tablet 20 MEQ 60 MEQ PO (03:49)
[2024-04-30] MEDS: tiZANidine HCl 2 MG Tablet 4 MG PO ×3 (04:04→21:13)
[2024-04-30] MEDS: Gabapentin 100 MG Capsule PO ×3 (04:04→21:12)
[2024-04-30] MEDS: Gabapentin 800 MG Tablet PO ×3 (04:04→21:12)
[2024-04-30] MEDS: Ceftriaxone 1 GM/50 ML BAG IV (05:05)
[2024-04-30] MEDS: Azithromycin 500 MG in 0.9% Normal Saline (250mL Bag) 250 ML 255 MG IV (05:49)
[2024-04-30 07:09] LABS: Absolute Lymphocyte Count 0.46 X10^3/uL (0.83-4.51); Absolute Neutrophil Count 10.2 X10^3/uL (2.0-7.7); Basophil# 0.04 X10^3/uL; Basophil% 0.4 % (0-1); Eosinophil# 0.01 X10^3/uL; Eosinophils% 0.1 % (0-5); Hematocrit 34.7 % (40-54); Hemoglobin 11.4 g/dL (13.0-16.5); Lymphocyte # 0.46 X10^3/ul (0.83-4.51); Lymphocyte % 4.1 % (19-41); Mean Corp Hgb Conc 32.9 g/dL (32-36); Mean Corpuscular Hgb 28.9 pg (27.0-32.0); Mean Corpuscular Volume 87.8 fL (80-94); Mean Platelet Vol. 10.8 fl (6.2-12.0); Monocyte# 0.33 X10^3/uL; NRBC Flagged by Analyzer 0 % (0-5); Neutrophil # 10.17 X10^3/uL (2.7-7.7); Neutrophil % 91.2 % (47-70); POSITIVE DIFFERENTIAL YES; Platelet Count 247 K/mm3 (150-450); RBC Distribution Width SD 44.9 fl (35.1-43.9); Red Blood Count 3.95 M/mm3 (4.6-6.2); White Blood Count 11.1 K/mm3 (4.4-11.0)
[2024-04-30 07:32] LABS: ALB/GLOB Ratio 1.1 RATIO (0.9-2.4); AST(SGOT) 35 U/L (15-37); Alanine Aminotransfer ALT/SGPT 21 U/L (16-61); Albumin, Serum 3.3 g/dL (3.2-5.0); Alkaline Phosphatase 107 U/L (45-117); Anion Gap 8 (5-15); BUN 35 mg/dL (7-18); BUN/Creat Ratio 25.4 RATIO (10-20); Calcium,Total 8.1 mg/dL (8.5-10.1); Chloride 108 mmol/L (98-107); Creatinine, Serum 1.38 mg/dL (0.70-1.30); EST Glomerular Filtration Rate 55 mL/min (>60); Est Glom Filt Rate - Afr Amer 66 mL/min (>60); Estimated Creatinine Clearance 64.21 ml/min; Globulin 3.1 g/dL (2.2-4.2); Glucose 138 mg/dL (74-106); Phosphorus 3.3 mg/dL (2.5-4.9); Potassium 4.1 mmol/L (3.5-5.1); Protein, Total 6.4 g/dL (6.4-8.2); Sodium Level 139 mmol/L (136-145)
--- NOTE | 2024-04-30 07:36 | PCM.PN.HOSP ---
Reason for Visit Reason for Visit: Diagnoses Obesity, unspecified (04/30/24) Hypokalemia (04/30/24) Essential (primary) hypertension (04/30/24) Pneumonia, unspecified organism (04/30/24) Acute bronchitis, unspecified (04/30/24) Unspecified asthma with (acute) exacerbation (04/30/24) Acute kidney failure, unspecified (04/30/24) Adverse effect of unspecified drugs, medicaments and biological substances, initial encounter (04/30/24) Resistance to unspecified antibiotic (04/30/24) Tobacco use (04/30/24) Presence of right artificial shoulder joint (04/30/24) Objective Data Objective Data Vital Signs: Vital Signs Temp Pulse Resp BP Pulse Ox O2 Del Method O2 Flow Rate 98.5 F 87 18 147/84 H 95 Nasal Cannula 2.5 04/30/24 03:34 04/30/24 04:49 04/30/24 04:49 04/30/24 03:34 04/30/24 04:49 04/30/24 04:49 04/30/24 04:49 Oxygen Flow Rate (L/min) 2.5 Oxygen Delivery Method Nasal Cannula Weight: 256 lb 9.889 oz Body Mass Index (BMI) 40.1 Intake & Output: Intake and Output for Last 24 Hours 04/28/24 04/29/24 04/30/24 23:59 23:59 23:59 Intake Total 1290 / 1290 Balance 1290 / 1290 Lab / Micro Data 04/30/24 06:39 04/30/24 06:39 Labs: Laboratory Results - last 24 hr 04/29/24 22:35: WBC 10.9, RBC 4.05 L, Hgb 11.7 L, Hct 35.3 L, MCV 87.2, MCH 28.9, MCHC 33.1, RDW Std Deviation 44.4 H, RDW Coeff of Bala 13.9, Plt Count 232, MPV 10.5, Immature Gran % (Auto) 1.000 H, Neut % (Auto) 73.6 H, Lymph % (Auto) 14.1 L, [place] % (Auto) 10.2 H, Eos % (Auto) 0.6, Baso % (Auto) 0.5, Absolute Neuts (auto) 8.0 H, Absolute Lymphs (auto) 1.54, Nucleated RBC % 0, D-Dimer Quant (PE/DVT) 1.02 H*, Sodium 139, Potassium 3.4 L, Chloride 105, Carbon Dioxide 27.0, Anion Gap 8, BUN 38 H, Creatinine 1.95 H, Estim Creat Clear Calc 46.32, Est GFR (MDRD) Af Amer 44 L, Est GFR (MDRD) Non-Af 37 L, BUN/Creatinine Ratio 19.5, Glucose 122 H, Calcium 8.3 L, Magnesium 1.9, Troponin I High Sens 24 04/30/24 06:39: WBC 11.1 H, RBC 3.95 L, Hgb 11.4 L, Hct 34.7 L, MCV 87.8, MCH 28.9, MCHC 32.9, RDW Std Deviation 44.9 H, RDW Coeff of Bala 14.0, Plt Count 247, MPV 10.8, Immature Gran % (Auto) 1.200 H, Neut % (Auto) 91.2 H, Lymph % (Auto) 4.1 L, [place] % (Auto) 3.0, Eos % (Auto) 0.1, Baso % (Auto) 0.4, Absolute Neuts (auto) 10.2 H, Absolute Lymphs (auto) 0.46 L, Nucleated RBC % 0, Sodium 139, Potassium 4.1, Chloride 108 H, Carbon Dioxide 24.0, Anion Gap 8, BUN 35 H, Creatinine 1.38 H, Estim Creat Clear Calc 64.21, Est GFR (MDRD) Af Amer 66, Est GFR (MDRD) Non-Af 55 L, BUN/Creatinine Ratio 25.4 H, Glucose 138 H, Calcium 8.1 L, Phosphorus 3.3, Total Bilirubin 0.30, AST 35, ALT 21, Alkaline Phosphatase 107, Total Protein 6.4, Albumin 3.3, Globulin 3.1, Albumin/Globulin Ratio 1.1 Micro: Microbiology 04/30/24 01:35 Mucosa - Nose Respiratory Panel (PCR) - Final Radiography Diagnostic Testing: Radiology Impression Chest X-Ray 04/29/24 22:40 IMPRESSION: As above. Reading Location: [facility] Chest CTA 04/29/24 23:45 IMPRESSION: 1. No evidence of pulmonary embolism. 2. Elevated right hemidiaphragm. 3. Intermediate lung volumes. Patchy airspace disease within the right lower lobe, suggest atelectasis. 4. Evidence of recent shoulder arthroplasty on the right, as described. 5. Additional findings, as detailed above One or more dose reduction techniques were used (e.g., Automated exposure control, adjustment of the mA and/or kV according to patient size, use of iterative reconstruction technique). Reading Location: [facility] Rhythm Strip Rhythm Strip: Sinus Rhythm Rate: 90 Ectopy: None Physical Exam Narrative Seen and examined Patient is stated he does not smoke. But he denies smokeless tobacco denies any prior history of asthma or allergy/hypersensitivity to extrinsic pollen or chemicals. 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 Sudden onset of wheezing after the right shoulder surgery which was done on , 1 day prior to admission. Feels mild chest tightness Physical exam General: Alert, Oriented x3, Cooperative HEENT: Atraumatic, PERRLA, EOMI, Normocephalic Oral: No Gingival or Mucosal Lesions/ Ulcerations Neck: Supple, No JVD, Negative Carotid Bruits Chest wall/Lungs: Air entry diminished in bilateral lungs. Bilateral upper airway wheezing. Cardiovascular: Regular rate, Regular Rhythm, Normal S1, Normal S2, No M/G/R Abdomen: Bowel Sounds Present, Soft, Non Tender, Non-Distended : No dysuria. No renal angle tenderness. No suprapubic tenderness. Extremities: No edema, Capillary Refill Less than 3 Seconds Skin: Right shoulder reverse arthroplasty. Surgical dressing is dry. Musculoskeletal: Right shoulder, no ROM. No Tenderness to Palpation of other joints or Extremities Neurological: Cranial nerves II-XII grossly intact, DTR 2+/4. No acute focal neurological deficit. Psych/Mental Status: Normal Affect, Appropriate. Assessment & Plan Assessment/Plan (1) Acute bronchitis with asthma with acute exacerbation: (2) Pneumonia: QUALIFIERS: Laterality: bilateral Lung location: unspecified part of lung Pneumonia type: due to unspecified organism Qualified Code(s): J18.9 - Pneumonia, unspecified organism (3) ASHLEY (acute kidney injury): (4) Hypokalemia: PLAN: Plan This 61-year-old gentleman was admitted with complaint that he is having an asthma attack. He has been having wheezing for the past week, worse for the past 3 days mainly with exertion, worse with laying down. Denies fever, chills, dyspnea. Occasionally nonproductive cough on and off for long time. Recently patient had right shoulder replacement. 1. Acute respiratory distress syndrome, asthma-like does not seem asthma: Patient might have hypersensitivity due to anesthetic agent as he feels also upper airway tightness. Denies history of smoking. Continue bronchodilator and IV Solu-Medrol. Chest CT newly reviewed elevated right hemidiaphragm. Patchy airspace in right lower lobe suggestive of atelectasis. Continue IV azithromycin. I do not think patient has pneumonia but will get pulmonary consult before I discontinue ceftriaxone. There is no increased eosinophil count. No leukocytosis. Respiratory panel normal. SARS-CoV-2 PCR ordered 2. Suspected ASHLEY; with elevated serum creatinine of 1.95 mg/dL and BUN of 38 mg/dL present on admission (up from his baseline of 1.1 mg/dL and BUN of 21 mg/dL): Volume resuscitate. 3. Hypokalemia of 3.4 mmol/L present on admission: Give supplemental KCl and repeat potassium is normal. Hypokalemia resolved 4. Obesity; with BMI of 39.3 this admission: Weight loss recommended. TSH 5. Very recent Right shoulder replacement surgery on 04/29/2024 [facility] on prn oxycodone: Right upper extremities sling and swath 6. Chronic Smokeless Tobacco Abuse- Tobacco Cessation was strongly encouraged but this patient is in the precontemplative phase of his addiction with no intention of quitting at this time. 7. Peripheral neuropathy; on gabapentin TID - Resume gabapentin as before. 8. Depression with anxiety; on duloxetine, mirtazapine and bupropion - Maintain on current regimen plus give low-dose prn alprazolam for breakthrough symptoms. 9. Other chronic comorbidities include migraine headache, history of skin cancer s/p resection, BPH on tamsulosin and chronic osteoarthritis with back pain on meloxicam home and as needed tizanidine. 10. DVT prophylaxis - Heparin 5,000U sq BID plus SCD's. Charges/Coding Visit Charges Inpatient E&M: 71931 Subs Hosp L2
[2024-04-30 07:40] LABS: Thyroid Stim Hormone (TSH) 0.446 uIU/mL (0.358-3.740)
[2024-04-30] MEDS: Ascorbic Acid 500 MG Tablet 1000 MG PO ×2 (07:59→16:26)
[2024-04-30] MEDS: Aspirin E.C. 81 MG Tablet PO (07:59)
[2024-04-30 09:32] LABS: BNP,B-Type NATRIURETIC PEPTIDE 38.5 pg/mL (0-100)
[2024-04-30] MEDS: DULoxetine Hcl 60 MG Capsule PO (10:28)
[2024-04-30] MEDS: Heparin Injection (Vial) 5,000 UNIT/ML VIAL 5000 UNIT SC ×2 (10:28→21:15)
[2024-04-30] MEDS: DULoxetine Hcl 30 MG Capsule PO (10:28)
[2024-04-30] MEDS: Lactobacillis Acidophilus 1 CAP PO ×4 (10:28→21:14)
[2024-04-30] MEDS: guaiFENesin 600 MG Tablet PO ×2 (10:29→21:15)
[2024-04-30] MEDS: MethylPREDNISolone 125 MG/2 ML Vial 60 MG IV (10:29)
[2024-04-30] MEDS: Zinc Sulfate 50 mg zinc (220 mg) ORAL capsule PO (10:30)
[2024-04-30] MEDS: Cholecalciferol (Vit D3) 125 MCG CAPSULE (5,000 UNITS) PO (10:30)
[2024-04-30] MEDS: buPROPion 100 MG Tablet 200 MG PO ×2 (10:30→21:14)
--- NOTE | 2024-04-30 13:32 | CASEMGMT ---
KAYLEE SIMONS Assessment: Face to Face with pt for initial transition planning/care coordination assessment. KAYLEE SIMONS introduced self and role at [facility], pt voices understanding and consents to assessment. Pt is A&O x4 and answers all questions appropriately at this time. Pt sitting up at edge of bed, family in pt room. Care providers, pharmacy, and demographics verified/updated. Admitting Dx: AE Asthma with bronchitis and early PNA PCP: Efrain Specialists: nicolle Rodrigues Pharmacy: [facility] Insurance: [facility] Prescription Benefit: yes LNOK: , Debby Living Arrangements: Pt lives with , kids and grandkids. ADLs: Pt states I at baseline. Transportation: Pt drives self and denies concerns with transportation. DME: Denies HHC/SNF: Denies Hx of. Pt states no concerns with going home at time of dc. Pt states no further concerns/needs. KAYLEE SIMONS discussed possible O2 needs at DC, provided list of local DME companies. Pt chose [employer] as DME provider of choice. CM to follow. Pt following up with surgeon at appointment to discuss OP therapy needs. Advised pt to ask CM if any further question/concerns/needs arise, voices understanding. Pt Goal: Home Plan: Home with family support, follow for O2 needs. Nhung PAGE CM
[2024-04-30] MEDS: amLODIPine 10 MG Tablet PO (13:55)
[2024-04-30] MEDS: Ipratropium/Albuterol Sulfate 3 ML AMPUL.NEB INHALATION ×2 (15:09→20:45)
[2024-04-30] MEDS: Mirtazapine 15 MG Tablet PO (21:15)
[2024-04-30] MEDS: Tamsulosin HCl 0.4 MG Capsule PO (21:17)
[2024-05-01] VITALS (13 sets, daily range): BP systolic 122–154; BP diastolic 66–98; PULSE 69–96; RESP 14–22; TEMP 36.3–36.6; O2SAT 92–98
[2024-05-01] MEDS: Gabapentin 100 MG Capsule PO ×2 (05:07→13:37)
[2024-05-01] MEDS: tiZANidine HCl 2 MG Tablet 4 MG PO ×2 (05:07→13:37)
[2024-05-01] MEDS: Gabapentin 800 MG Tablet PO ×2 (05:07→13:37)
[2024-05-01] MEDS: Acetaminophen 325 MG Tablet 650 MG PO (05:08)
[2024-05-01] MEDS: Aspirin E.C. 81 MG Tablet PO (07:53)
[2024-05-01] MEDS: Ascorbic Acid 500 MG Tablet 1000 MG PO (07:53)
[2024-05-01] MEDS: guaiFENesin 600 MG Tablet PO (09:23)
[2024-05-01] MEDS: DULoxetine Hcl 60 MG Capsule PO (09:23)
[2024-05-01] MEDS: Lactobacillis Acidophilus 1 CAP PO ×2 (09:23→13:37)
[2024-05-01] MEDS: DULoxetine Hcl 30 MG Capsule PO (09:23)
[2024-05-01] MEDS: Heparin Injection (Vial) 5,000 UNIT/ML VIAL 5000 UNIT SC (09:23)
[2024-05-01] MEDS: buPROPion 100 MG Tablet 200 MG PO (09:24)
[2024-05-01] MEDS: Zinc Sulfate 50 mg zinc (220 mg) ORAL capsule PO (09:24)
[2024-05-01] MEDS: amLODIPine 10 MG Tablet PO (09:24)
[2024-05-01] MEDS: Ceftriaxone 1 GM/50 ML BAG IV (09:24)
--- NOTE | 2024-05-01 10:07 | DCINST_ITS ---
Discharge Instructions Diet Discharge Diet: 2000 mg Sodium Diet DC O2, CPAP, BIPAP needs Home O2 Discharge instructions: No Dressing / Incision Discharge Activity: Return to Normal Activity Weight Bearing Status: Weight bearing as tolerated Dressing / Incision Call your doctor if you observe: Fever of 101 or Higher, Coldness, Increased Pain, Numbness or Tingling, Change in Color, Inability to urinate, Inability to have a bowel movement, Shortness of breath, Dizziness, Fainting spells, Swelling in the ankles, Chest pain, Prolonged hiccupping, Increased palpitations (irregular heartbeat) and Calf discomfort Follow Up Care When: IN 2 WEEKS Test Results: Test results from this visit will be discussed in further detail at your follow- up appointment, if applicable. Discharge Plan Admission Admit Date/Time: 04/30/24 02:12 Primary Reason for Your Visit: copd? exa Attending Provider: Baron Pearson Primary Care Provider: Robbie Zuniga Consulting Providers: Hong Chiu; Stewart Bray; Ernie Reed; Jamarcus Miramontes; Dariusz Rueda; Hong Glass; Yfn Baugh; Saulo Greenwood; Petty Spain; Manoj Chao; Richard Villegas; Hammad Leyva; Chrissy Patel; Mati Richey; Margie Gutierrez; Hasmukh Cervantes; Jaskaran Kuhn; Dago Lombardi; Ti Norman; Kelsie Mchugh; Mariana Garcia; Julio Epperson; Lloyd Gómez; Stuart Abbott Instructions Additional Instructions / Restrictions: Patient advised to follow-up specialist field engineer within a month. Follow-up orthopedics for postop care as directed Discharge Orders/Prescriptions Prescriptions: New amlodipine 10 mg Tablet 10 mg PO DAILY 30 Days Qty: 30 0RF prednisone 20 mg tablet 40 mg PO DAILY 5 Days Qty: 10 0RF dextromethorphan-guaifenesin [Mucinex DM] 60-1,200 mg tablet extended release 12 hr 1 tab PO Q12H 7 Days Qty: 14 0RF azithromycin [Zithromax] 500 mg tablet 500 mg PO DAILY 3 Days Qty: 3 0RF Rx Instructions: 2 more days Continued tizanidine 4 mg tablet 4 mg PO TID gabapentin 800 mg tablet 800 mg PO TID gabapentin 100 mg capsule 100 mg PO TID meclizine 12.5 mg tablet 12.5 mg PO DAILY PRN (Reason: vertigo ) bupropion HCl 100 mg tablet 200 mg PO BID Qty: 120 2RF Rx Instructions: 2 by mouth every am and 2 by mouth every pm duloxetine 60 mg capsule,delayed release(DR/EC) 60 mg PO QDAY duloxetine 30 mg capsule,delayed release(DR/EC) 30 mg PO QDAY mirtazapine 15 mg tablet 15 mg PO QHS Qty: 30 2RF aspirin [Adult Aspirin Regimen] 81 mg tablet,delayed release (DR/EC) 81 mg PO DAILY oxycodone 5 mg tablet 5 mg PO Q6H PRN (Reason: pain) albuterol sulfate 90 mcg/actuation HFA aerosol inhaler 2 puff INHALATION Q8H PRN (Reason: bronchospasm) Patient Comments: [NO ORIGINAL SIG] tamsulosin 0.4 mg capsule 0.4 mg PO QHS Held meloxicam 15 mg tablet 15 mg PO DAILY Hold Instructions: Hold for 3 days and resume with 7.5 mg daily losartan-hydrochlorothiazide 100-25 mg tablet 1 tab PO QDAY Hold Instructions: Hold for 1 week and follow with PCP with repeat BMP Discontinued doxycycline monohydrate 100 mg capsule 100 mg PO Q12H Referrals / Follow Up: Dariusz Rueda DO [Med Staff - Active Staff] - Within 1 Month (For PFT test) Robbie Zuniga DO [Primary Care Provider] - Disposition Disposition (needs filled in before D/C Order can be placed): Home, Self Care
--- NOTE | 2024-05-01 10:15 | PCM.DC.SUM ---
Providers Date of Admission: 04/30/24 Date of Discharge: 05/01/24 Primary Care Physician: Dr. 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 / Pulmonary Medicine Routine Consulting Provider: Intensivists/Pulmonary Med Reason for Consult: sudden onset of resp distress/wheezing for 1 day EMERGENT Consult: No MD Notified: Yes Date Notified: 04/30/24 Time Notified: 12:40 Method of Notification: Verbal Reason For Visit: AE ASTHMA WITH BRONCHITIS AND EARLY PNA Diagnosis Discharge Diagnosis (1) Acute bronchitis with asthma with acute exacerbation: Status: Acute Code(s): J20.9 - Acute bronchitis, unspecified; J45.901 - Unspecified asthma with (acute) exacerbation (2) Pneumonia: Status: Acute Code(s): J18.9 - Pneumonia, unspecified organism Qualifiers: Pneumonia type: due to unspecified organism Laterality: bilateral Lung location: unspecified part of lung Qualified Code(s): J18.9 - Pneumonia, unspecified organism (3) ASHLEY (acute kidney injury): Status: Acute Code(s): N17.9 - Acute kidney failure, unspecified (4) Hypokalemia: Status: Acute Code(s): E87.6 - Hypokalemia Plan This 61-year-old gentleman was admitted with complaint that he is having an asthma attack. He has been having wheezing for the past week, worse for the past 3 days mainly with exertion, worse with laying down. Denies fever, chills, dyspnea. Occasionally nonproductive cough on and off for long time. Recently patient had right shoulder replacement. 1. Acute respiratory distress syndrome, asthma-like does not seem asthma: Patient might have hypersensitivity due to anesthetic agent as he feels also upper airway tightness. Denies history of smoking. Continue bronchodilator and IV Solu-Medrol. Chest CT newly reviewed elevated right hemidiaphragm. Patchy airspace in right lower lobe suggestive of atelectasis. Continue IV azithromycin. I do not think patient has pneumonia but will get pulmonary consult before I discontinue ceftriaxone. There is no increased eosinophil count. No leukocytosis. Respiratory panel normal. SARS-CoV-2 PCR ordered 05/01: Patient was not seen by investigations director yesterday and he got much better. He is not on oxygen. He wants to go home most likely patient have COPD/asthma exacerbation. He chews tobacco since age of 15/16. Home qualification oxygen ordered. Discharged on Prednisone burst therapy, azithromycin and Mucinex DM. Pneumonia ruled out 2. Suspected ASHLEY; with elevated serum creatinine of 1.95 mg/dL and BUN of 38 mg/dL present on admission (up from his baseline of 1.1 mg/dL and BUN of 21 mg/dL): Volume resuscitate. 2/2: ASHLEY possible due to meloxicam, new admission or losartan/HCTZ. Advised to hold meloxicam for 3 more days and start lower dose as inflammatory medication for his right shoulder surgery. Hold losartan HCT and repeat BMP in 1 week follow with PCP before resumption 3. Hypokalemia of 3.4 mmol/L present on admission: Give supplemental KCl and repeat potassium is normal. Hypokalemia resolved 2/2 hypokalemia corrected 4. Obesity; with BMI of 39.3 this admission: Weight loss recommended. TSH 5. Very recent Right shoulder replacement surgery on 04/29/2024 [facility] on prn oxycodone: Right upper extremities sling and swath 6. Chronic Smokeless Tobacco Abuse- Tobacco Cessation was strongly encouraged but this patient is in the precontemplative phase of his addiction with no intention of quitting at this time. 7. Peripheral neuropathy; on gabapentin TID - Resume gabapentin as before. 8. Depression with anxiety; on duloxetine, mirtazapine and bupropion - Maintain on current regimen plus give low-dose prn alprazolam for breakthrough symptoms. 9. Other chronic comorbidities include migraine headache, history of skin cancer s/p resection, BPH on tamsulosin and chronic osteoarthritis with back pain on meloxicam home and as needed tizanidine. 10. DVT prophylaxis - Heparin 5,000U sq BID plus SCD's. Discharge medication reconciliation done. Discharge follow-up instructions completed. Discharge process discussed with the patient and all questions were answered to patient's satisfaction. Follow with PCP in 1 to 2 weeks Total time spent, exact 35 minutes on discharge meds reconciliation, examination, coordination of care with nurses and ancillary staff, review of imaging and blood test and discussion with the patient on follow-up instructions. Medications at Discharge Home Medications gabapentin 100 mg capsule 100 mg PO TID pain 08/12/23 gabapentin 800 mg tablet 800 mg PO TID pain 08/12/23 losartan 100 mg-hydrochlorothiazide 25 mg tablet 1 tab PO QDAY bp 08/12/23 Held on 05/01/24. Instructions: Hold for 1 week and follow with PCP with repeat BMP meclizine 12.5 mg tablet 12.5 mg PO DAILY PRN vertigo 08/12/23 meloxicam 15 mg tablet 15 mg PO DAILY vertigo 08/12/23 Held on 05/01/24. Instructions: Hold for 3 days and resume with 7.5 mg daily tizanidine 4 mg tablet 4 mg PO TID spasm 08/12/23 bupropion HCl 100 mg tablet 200 mg (2 x 100 mg) PO BID anxiety #120 tabs 10/21/23 duloxetine 30 mg capsule,delayed release 30 mg PO QDAY mood 03/02/24 duloxetine 60 mg capsule,delayed release 60 mg PO QDAY mood 03/02/24 mirtazapine 15 mg tablet 15 mg PO QHS #30 tabs 03/02/24 albuterol sulfate 90 mcg/actuation aerosol inhaler 2 puff inhalation Q8H PRN bronchospasm 04/29/24 aspirin 81 mg tablet,delayed release (Adult Aspirin Regimen) 81 mg PO DAILY blood thinner 04/29/24 oxycodone 5 mg tablet 5 mg PO Q6H PRN pain 04/29/24 tamsulosin 0.4 mg capsule 0.4 mg PO QHS bph 04/29/24 amlodipine 10 mg tablet 10 mg PO DAILY 30 days #30 tabs 05/01/24 azithromycin 500 mg tablet (Zithromax) 500 mg PO DAILY 3 days #3 tabs 05/01/24 dextromethorphan-guaifenesin ER 60 mg-1,200 mg tab,extend release,12hr (Mucinex DM) 1 tab PO Q12H 7 days #14 tabs 05/01/24 prednisone 20 mg tablet 40 mg (2 x 20 mg) PO DAILY 5 days #10 tabs 05/01/24 Physical Exam Narrative Seen and examined Denies shortness of breath or chest pain. Feels much better. Wants to go home. No fever. Triple PCR for SARS-CoV-2, flu and RSV are negative. Respiratory panel negative Physical exam General: Alert, Oriented x3, Cooperative HEENT: Atraumatic, PERRLA, EOMI, Normocephalic Oral: No Gingival or Mucosal Lesions/ Ulcerations Neck: Supple, No JVD, Negative Carotid Bruits Chest wall/Lungs: Air entry diminished in bilateral lungs. Right lung base crepitation. Cardiovascular: Regular rate, Regular Rhythm, Normal S1, Normal S2, No M/G/R Abdomen: Bowel Sounds Present, Soft, Non Tender, Non-Distended : No dysuria. No renal angle tenderness. No suprapubic tenderness. Extremities: No edema, Capillary Refill Less than 3 Seconds Skin: Right shoulder reverse arthroplasty. Surgical dressing is dry. Musculoskeletal: Right shoulder, no ROM. No Tenderness to Palpation of other joints or Extremities Neurological: Cranial nerves II-XII grossly intact, DTR 2+/4. No acute focal neurological deficit. Psych/Mental Status: Normal Affect, Appropriate. Weight / BMI Weight Weight: 256 lb 9.889 oz Body Mass Index (BMI) 40.1 ABG / Lab / Microbiology Data 04/30/24 06:39 04/30/24 06:39 Microbiology: Microbiology 04/30/24 20:35 Mucosa - Nasopharyngeal SARS-CoV-2, Influenza & RSV (PCR) - Final 04/30/24 01:35 Mucosa - Nose Respiratory Panel (PCR) - Final D/C Instructions Discharge Diet: 2000 mg Sodium Diet Weight Bearing Status: Weight bearing as tolerated Call your doctor if you observe: Fever of 101 or Higher, Coldness, Increased Pain, Numbness or Tingling, Change in Color, Inability to urinate, Inability to have a bowel movement, Shortness of breath, Dizziness, Fainting spells, Swelling in the ankles, Chest pain, Prolonged hiccupping, Increased palpitations (irregular heartbeat) and Calf discomfort DC O2, CPAP, BIPAP Needs PSN CPAP & BiPAP: BiPAP & CPAP Settings per PSN Mode BiPAP 05/01/24 04:10 Bipap Delivery Device Face Mask 05/01/24 04:10 BiPAP Inspiratory Pressure 12 05/01/24 04:10 BiPAP Expiratory Pressure 8 05/01/24 04:10 Total Flow Rate 5 05/01/24 04:10 Home O2 Discharge instructions: No When: IN 2 WEEKS Meaningful Use Info Meaningful Use Meaningful Use Diagnoses (Choose all that apply): None applicable Ischemic Stroke Statin Dosing Therapy Reference: STATIN DOSE THERAPY REFERENCE: * Patients > 75 years receive moderate or high dose statin therapy. * Patients 75 years or YOUNGER should receive HIGH intensity statin dose unless contraindicated. You will be required to document reason for non-treatment if statin daily dose does not meet guidelines. HIGH DOSE STATIN THERAPY DAILY Atorvastatin > than or = to 40 mg Rosuvastatin > than or = to 20 mg Amlodipine + Atorvastatin > than or = to 2.5/40 mg Ezetimibe + Simvastatin 10/80 mg Simvastatin 80mg Discharge Plan Admission Admit Date/Time: 04/30/24 02:12 Primary Reason for Your Visit: copd? exa Attending Provider: Baron Pearson Primary Care Provider: Robbie Zuniga Consulting Providers: Hong Chiu; Stewart Bray; Ernie Reed; Jamarcus Miramontes; Dariusz Rueda; Hong Glass; Yfn Baugh; Saulo Greenwood; Petty Spain; Manoj Chao; Richard Villegas; Hammad Leyva; Chrissy Patel; Mati Richey; Margie Gutierrez; Hasmukh Cervantes; Jaskaran Kuhn; Dago Lombardi; Ti Norman; Kelsie Mchugh; Mariana Garcia; Julio Epperson; Lloyd Gómez; Stuart Abbott Instructions Additional Instructions / Restrictions: Patient advised to follow-up investigations director within a month. Follow-up orthopedics for postop care as directed Discharge Orders/Prescriptions Prescriptions: New amlodipine 10 mg Tablet 10 mg PO DAILY 30 Days Qty: 30 0RF prednisone 20 mg tablet 40 mg PO DAILY 5 Days Qty: 10 0RF dextromethorphan-guaifenesin [Mucinex DM] 60-1,200 mg tablet extended release 12 hr 1 tab PO Q12H 7 Days Qty: 14 0RF azithromycin [Zithromax] 500 mg tablet 500 mg PO DAILY 3 Days Qty: 3 0RF Rx Instructions: 2 more days Continued tizanidine 4 mg tablet 4 mg PO TID gabapentin 800 mg tablet 800 mg PO TID gabapentin 100 mg capsule 100 mg PO TID meclizine 12.5 mg tablet 12.5 mg PO DAILY PRN (Reason: vertigo ) bupropion HCl 100 mg tablet 200 mg PO BID Qty: 120 2RF Rx Instructions: 2 by mouth every am and 2 by mouth every pm duloxetine 60 mg capsule,delayed release(DR/EC) 60 mg PO QDAY duloxetine 30 mg capsule,delayed release(DR/EC) 30 mg PO QDAY mirtazapine 15 mg tablet 15 mg PO QHS Qty: 30 2RF aspirin [Adult Aspirin Regimen] 81 mg tablet,delayed release (DR/EC) 81 mg PO DAILY oxycodone 5 mg tablet 5 mg PO Q6H PRN (Reason: pain) albuterol sulfate 90 mcg/actuation HFA aerosol inhaler 2 puff INHALATION Q8H PRN (Reason: bronchospasm) Patient Comments: [NO ORIGINAL SIG] tamsulosin 0.4 mg capsule 0.4 mg PO QHS Held meloxicam 15 mg tablet 15 mg PO DAILY Hold Instructions: Hold for 3 days and resume with 7.5 mg daily losartan-hydrochlorothiazide 100-25 mg tablet 1 tab PO QDAY Hold Instructions: Hold for 1 week and follow with PCP with repeat BMP Discontinued doxycycline monohydrate 100 mg capsule 100 mg PO Q12H Referrals / Follow Up: Dariusz Rueda DO [Med Staff - Active Staff] - Within 1 Month (For PFT test) Robbie Zuniga DO [Primary Care Provider] - Disposition Disposition (needs filled in before D/C Order can be placed): Home, Self Care Charges/Coding Visit Charges Inpatient E&M: 04129 Disch Hosp >30min
[2024-05-01] MEDS: Azithromycin 500 MG in 0.9% Normal Saline (250mL Bag) 250 ML 255 MG IV (11:00)
[2024-05-01] MEDS: Cholecalciferol (Vit D3) 125 MCG CAPSULE (5,000 UNITS) PO (11:04)
[2024-05-01] MEDS: Ipratropium/Albuterol Sulfate 3 ML AMPUL.NEB INHALATION (11:28)
[2024-05-01] MEDS: 0.9% Saline Lock 10 ML Syringe IV (13:38)
[2024-05-03 15:11] LABS: Hemoglobin A1c 5.4 % (3.8-5.6)
== END 2024-05-01 15:33 | disposition home or self-care (01) | DRG 202 ==
LOC: ED 04-30 01:31 → MS3 04-30 01:58
PROVIDERS: Admitting Provider Internal Medicine; Emergency Provider Emergency Medicine; PCP Student in an Organized Health Care Education/Training Program; Referring Provider Internal Medicine; Visit Provider Internal Medicine
DX: J20.9 Acute bronchitis, unspecified (principal); J18.9 Pneumonia, unspecified organism; J80 Acute respiratory distress syndrome; J44.0 Chronic obstructive pulmonary disease with (acute) lower respiratory infection; N17.9 Acute kidney failure, unspecified; J45.901 Unspecified asthma with (acute) exacerbation; I10 Essential (primary) hypertension; Z68.39 Body mass index [BMI] 39.0-39.9, adult; E87.6 Hypokalemia; F17.220 Nicotine dependence, chewing tobacco, uncomplicated; F41.8 Other specified anxiety disorders; M19.90 Unspecified osteoarthritis, unspecified site; G43.709 Chronic migraine without aura, not intractable, without status migrainosus; G62.9 Polyneuropathy, unspecified; E66.9 Obesity, unspecified; Z79.899 Other long term (current) drug therapy; R42 Dizziness and giddiness; Z85.828 Personal history of other malignant neoplasm of skin; N40.0 Benign prostatic hyperplasia without lower urinary tract symptoms; G89.29 Other chronic pain; Z96.611 Presence of right artificial shoulder joint; Z79.82 Long term (current) use of aspirin; T46.5X5A Adverse effect of other antihypertensive drugs, initial encounter; T50.2X5A Adverse effect of carbonic-anhydrase inhibitors, benzothiadiazides and other diuretics, initial encounter
CPT/HCPCS: 36415; 71046; 71275; 80048; 80053; 83036; 83735; 83880; 84100; 84443; 84484; 85025; 85379; 87631; 87633; 93005; 94002; 94003; 94640; 94668; 99252; 99284; Q9967; A4216; G0463

== ENCOUNTER 2024-05-18 12:32 | Inpatient (IN) | payer MEDICARE, SELFPAY ==
[2024-05-18] VITALS (15 sets, daily range): BP systolic 74–140; BP diastolic 54–95; PULSE 71–106; RESP 15–18; TEMP 35.9–36.7; O2SAT 94–98; BMI 36.1; BMI 38.0
--- NOTE | 2024-05-18 12:39 | CT_ITS ---
EXAM: STROKE BRAIN/HEAD WITHOUT CONT CLINICAL HISTORY: Slurred speech. Acute stroke suspected. COMPARISON: Comparison is made with prior study dated January 05, 2023. TECHNIQUE: Multiple axial tomographic images were obtained without intravenous contrast administration. Coronal and sagittal reconstruction was obtained as well. FINDINGS: Mild degree of cerebral atrophy. No acute abnormality is seen. 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 CT/STROKE Brain/Head without Cont IMPRESSION: No acute abnormality is seen. The results were called to Dr. Tavares the referring physician. Reading Location: [place] [id number]
--- NOTE | 2024-05-18 12:39 | CT_ITS ---
PROCEDURE: CTA HEAD AND NECK WITH CONTRAST REASON FOR EXAM: Neuro deficit. Evaluate for acute stroke. TECHNIQUE: Contiguous axial scans of 1.25 mm slice thicknesses. CTA imaging of the head and neck from the aortic arch to the skull vertex with intravenous contrast. 3D sagittal and coronal reconstructions. One or more dose reduction techniques were used (e.g., automated exposure control, adjustment of mA and/or kv according to patient size, use of iterative reconstruction technique). CONTRAST: Isovue 370. Amount injected: 100 mL. COMPARISON: CT brain without contrast dated 05/18/2024. FINDINGS: Aortic Arch: Normal size and branching pattern. No significant atherosclerotic plaque. Brachiocephalic and Subclavians: Unremarkable RIGHT Carotid: Right CCA: Unremarkable. Right ICA: Unremarkable. Right ECA: Unremarkable. LEFT Carotid: Left CCA: Unremarkable. Left ICA: Unremarkable. Left ECA: Unremarkable. Vertebrals: Dominant right.. Arise from the subclavians. Both vertebrals form the basilar. RIGHT Vertebral: Unremarkable. LEFT Vertebral: Suspected narrowing proximally. No intracranial aneurysms or large vascular malformations are identified. Anterior cerebral arteries: Unremarkable. Middle cerebral arteries: Unremarkable. Basilar artery: Unremarkable. Posterior cerebral arteries: Unremarkable. Other major branches of the posterior circulation: Unremarkable. Major venous structures: Unremarkable. Other findings: No lymphadenopathy. Lung apices are clear. Leftward deviation of the nasal septum. CT/STROKE CTA Head AND Neck W/Con IMPRESSION: 1. Unremarkable CTA study of the brain and neck. 2. Suspected narrowing of the proximal left vertebral artery. Reading Location: [place]
--- NOTE | 2024-05-18 12:41 | ED.VIS.STROK ---
HPI History of Present Illness Chief Complaint: Stroke Alert Detail of Chief Complaint: Trouble with speech Informant: patient Onset/Context/Timing Onset: Hours (1000) Context: Sudden Onset Timing: Continuous Quality and Location: Positive for Slurred Speech and Expressive Aphasia Onset: 1000 Current Severity: Mild Maximum Severity: Mild Worsened by: Nothing Relieved by: Nothing Associated Symptoms Associated Symptoms: Negative for Headache, Nausea, Vomiting or Chest Pain Narrative Narrative: Patient is a 64-year-old male presents because of trouble with speech. Onset 10 AM. Patient was recently admitted for acute respiratory failure with Rester distress due to bronchitis, asthma exacerbation and unspecified pneumonia. He also had ASHLEY. He had recent shoulder surgery, approximately 3 weeks ago,. He does use electronic cigarettes. There is a history of peripheral neuropathy. Patient was seen in triage. Patient was seen prior to the entry of orders and me acknowledging that I saw patient. Documented time is after I completed a neurologic exam in triage. Prior similar symptoms: No Recent Illness/Hospitalization: Yes [facility] Medical History Anxiety disorder, unspecified MDD (major depressive disorder) Skin cancer Osteoarthritis Hearing problem Bone fracture History of back problems Arthritis Alcohol abuse Migraines Hypertension Home Medications ?Medication ?Instructions ?Recorded ?Last Taken ?Type gabapentin 100 mg capsule 100 mg PO TID pain 08/12/23 Unknown History gabapentin 800 mg tablet 800 mg PO TID pain 08/12/23 Unknown History losartan 100 1 tab PO QDAY bp 08/12/23 Unknown History mg-hydrochlorothiazide 25 mg tablet meclizine 12.5 mg tablet 12.5 mg PO DAILY PRN vertigo 08/12/23 Unknown History meloxicam 15 mg tablet 15 mg PO DAILY vertigo 08/12/23 Unknown History tizanidine 4 mg tablet 4 mg PO TID PRN spasm 08/12/23 Unknown History bupropion HCl 100 mg tablet 200 mg (2 x 100 mg) PO BID anxiety 10/21/23 Unknown Rx #120 tabs duloxetine 30 mg capsule,delayed 30 mg PO QDAY mood 03/02/24 Unknown History release duloxetine 60 mg capsule,delayed 60 mg PO QDAY mood 03/02/24 Unknown History release mirtazapine 15 mg tablet 15 mg PO QHS #30 tabs 03/02/24 Unknown Rx albuterol sulfate 90 mcg/actuation 2 puff inhalation Q8H PRN 04/29/24 Unknown History aerosol inhaler bronchospasm aspirin 81 mg tablet,delayed 81 mg PO DAILY blood thinner 04/29/24 Unknown History release (Adult Aspirin Regimen) Held on 05/18/24. Instructions: surgery tamsulosin 0.4 mg capsule 0.4 mg PO QHS bph 04/29/24 Unknown History amlodipine 10 mg tablet 10 mg PO DAILY 30 days #30 tabs 05/01/24 Unknown Rx trazodone 50 mg tablet 25 - 50 mg PO QHS PRN PRN insomnia 05/18/24 Unknown History Allergy/AdvReac Type Severity Reaction Status Date / Time No Known Allergies Allergy Verified 04/29/24 21:45 Family History Other Alcoholism Arthritis Cancer Depression Mental disorder Myocardial infarction Respiratory disease Social History Smoking Status: Never smoker alcohol intake: former substance use type: does not use ROS ROS ED Constitutional Constitutional ED: Denies chills, fever(s), subjective or sweats Eyes Eyes: Denies blurry vision or change in vision ENT ENT ED: Denies ear pain, rhinorrhea or sore throat Cardiovascular Cardiovascular: Denies chest pain, palpitations or paroxysmal nocturnal dyspnea Respiratory/Chest Respiratory/Chest: Reports dyspnea and dyspnea on exertion; Denies cough or paroxysmal nocturnal dyspnea Gastrointestinal Gastrointestinal: Denies abdominal pain, nausea or vomiting Genitourinary Genitourinary ED: Denies dysuria, hematuria or urinary frequency Musculoskeletal Musculoskeletal: Reports other Details: Right shoulder pain. Status post surgery 3 weeks ago. ; Denies arthralgias or myalgias Neurologic Neurologic: Denies headache(s), paresthesias or weakness Psychiatric Psychiatric: Denies anxiety Endocrine Endocrinology: Denies polydipsia, polyphagia or polyuria Hematologic/Lymphatic Hematologic/Lymphatic: Denies easy bleeding or easy bruising EXAM Physical Exam Const Vital Signs: 05/18/24 12:36 05/18/24 12:39 05/18/24 12:40 Temperature 97.4 F L Temperature Source Temporal Pulse Rate 106 H Respiratory Rate 17 16 Blood Pressure 74/54 L 74/54 L Blood Pressure Mean 60 60 Pulse Ox 94 94 Oxygen Delivery Method Room Air Room Air Room Air 05/18/24 12:53 05/18/24 12:55 05/18/24 13:02 Temperature Temperature Source Pulse Rate 79 80 80 Respiratory Rate 18 18 18 Blood Pressure 96/75 96/75 Blood Pressure Mean 82 82 Pulse Ox 95 95 95 Oxygen Delivery Method Room Air Room Air 05/18/24 13:30 05/18/24 13:57 05/18/24 14:18 Temperature Temperature Source Pulse Rate 73 72 74 Respiratory Rate 18 15 16 Blood Pressure 84/62 L 105/72 121/95 H Blood Pressure Mean 69 83 103 Pulse Ox 98 94 94 Oxygen Delivery Method Room Air Positive well nourished, well developed and obese Constitutional Narrative: Patient appears tachypneic. General Appearance ED: well developed; Negative for NAD Nutritional Appearance: obese HEENT Reports dry mucous membranes atraumatic Mouth ED: Yes dry mucous membranes Mouth: dry mucous membranes Eyes PERRL and EOMs intact bilaterally General Eye ED: Negative for pale conjunctiva or scleral icterus Neck no lymphadenopathy, supple and no JVD Resp No normal respiratory effort and No clear to auscultation bilaterally Resp Narrative: Patient is tachypneic. Patient's breathing slightly labored. Auscultation: rales bilateral Cardio no murmurs Rate: regular rate Rhythm: regular rhythm Heart Sounds: S1 normal and S2 normal GI normal to inspection, nondistended, normoactive bowel sounds, soft to palpation, non-tender and non-distended Extremity Negative for normal to inspection General Extremety ED: Yes edema General Extremity: edema Neuro oriented x3, CN's II-XII intact bilaterally and no sensory deficits noted Gabi Coma Scale: document GCS findings Spontaneous Obeys Commands Oriented 15 Sensorium / Orientation: alert Speech: Negative for speech normal Psych mental status grossly normal Skin Skin Narrative: No obvious wounds noted over areas that are visible. NIHSS NIHSS Initial: 1a Level of Consciousness: 1 1b LOC Questions (Score 2 if aphasic/stupor): 0 1c LOC Commands (Only score 1st attempt): 0 2 Best Gaze (If aphasic, use reflexive mvmts.): 0 3 Visual: 0 4 Facial Palsy: 0 5 Motor Arm Right (UN = amputation/fusion): 0 5 Motor Arm Left: 0 6 Motor Leg Left: 0 7 Limb ataxia (Only + if out of proportion): 0 8 Sensory (Aphasia/stupor=0 or 1, coma=2): 0 9 Best Language: 1 10 Dysarthria (mute, coma=2, intubated=UN): 0 11 Extinction and Inattention (only scored if +): 0 Total Score: 2 MDM MDM MDM Narrative Medical decision making narrative: After reviewing patient's vital signs he is noted be hypotensive and tachycardic. This is may represent poor perfusion. Stroke team was called and he is within the window for TNK. He has no contraindication. He has problems with expressive aphasia. Once I was aware of the low blood pressure spoke to Yamila who is with patient in the radiology suite. Asked for a repeat blood pressure. If normal this would represent orthostatic hypotension since his blood pressure was assessed when he was sitting. Lab Data Attestation: I reviewed the patient's lab results. Lab results narrative: CBC reveals mild anemia. Indices are normal. Basic metabolic panel is remarkable for a BUN of 41 and a creatinine of 3.92. BUN and creatinine on April 30, 2024 was 35 and 1.38. Patient's hemoglobin is higher than baseline from 1.4-12.5 which would support dehydration with acute kidney injury. Troponin is normal. Will page hospitalist for admission. Labs: Laboratory Results - last 24 hr 05/18/24 05/18/24 12:39 13:10 WBC 9.8 RBC 4.42 L Hgb 12.5 L Hct 39.1 L MCV 88.5 MCH 28.3 MCHC 32.0 RDW Std Deviation 45.9 H RDW Coeff of Bala 14.2 Plt Count 318 MPV 9.8 Immature Gran % (Auto) 1.400 H Neut % (Auto) 72.7 H Lymph % (Auto) 13.3 L [place] % (Auto) 10.5 H Eos % (Auto) 1.4 Baso % (Auto) 0.7 Absolute Neuts (auto) 7.1 Absolute Lymphs (auto) 1.30 Nucleated RBC % 0 PT 13.9 INR 1.1 APTT 25.1 Sodium 138 Potassium 4.2 Chloride 102 Carbon Dioxide 26.0 Anion Gap 10 BUN 41 H Creatinine 3.92 H Estim Creat Clear Calc 21.36 Est GFR (MDRD) Af Amer 20 L Est GFR (MDRD) Non-Af 16 L BUN/Creatinine Ratio 10.5 Glucose 116 H Lactic Acid 2.0 Calcium 9.3 Troponin I High Sens 11 Radiography Chest X-Ray - ED: 1 View, Read by ED Physician (Independent reviewed interpreted by me at 1344.), Normal, Heart, Mediastinum, Bony Structures, No Acute Disease and Chronic Changes Diagnostic Testing: Clinical Impression(s) from Imaging Studies Brain CT 05/18/24 12:39 IMPRESSION: No acute abnormality is seen. The results were called to Dr. Tavares the referring physician. Reading Location: [facility] Head/Neck CTA 05/18/24 12:39 IMPRESSION: 1. Unremarkable CTA study of the brain and neck. 2. Suspected narrowing of the proximal left vertebral artery. Reading [facility] Initial EKG: Attestation: I personally reviewed and interpreted this EKG as follows: Interpretation: Sinus Rhythm (Rate is 76. There is a short [place] interval. Cures duration 108 ms. QT duration 262 ms. [place] is normal. There is no acute ischemic changes noted) Management Discussion w/another healthcare provider: Hospitalist (Dr. Wick Gamez was made aware of patient. Patient is a full admit to PCU. History physical and pertinent findings discussed with hospitalist), [employer] (Case was discussed with Dr. Teixeira the [facility] neurologist. He he has a NIH of 1. Since patient is improving and his history is not straightforward and some of him symptoms may be due to poor perfusion because of hypotension will not administer TNK. Recommended continuing the stroke workup.) and Radiologist (I was informed by Dr. Elizabeth that the unenhanced scan was unremarkable.) Treatment and Re-Evaluation Narrative: [place] was asked to page hospitalist at [phone]. Patient and spouse were informed of results. Hospitalist have been paged. Suspect this is due to poor perfusion because of a blood pressure of 74/54. Discharge Plan Dx/Rx/DC Orders Clinical Impression: Acute hypotension, Acute kidney injury, Obesity (BMI 30-39.9), Acute dehydration, Expressive aphasia Disposition Disposition: Acute Care [facility]
[2024-05-18 12:55] LABS: Absolute Neutrophil Count 7.1 X10^3/uL (2.0-7.7); Basophil# 0.07 X10^3/uL; Basophil% 0.7 % (0-1); Eosinophil# 0.14 X10^3/uL; Eosinophils% 1.4 % (0-5); Hematocrit 39.1 % (40-54); Hemoglobin 12.5 g/dL (13.0-16.5); Lymphocyte % 13.3 % (19-41); Mean Corpuscular Hgb 28.3 pg (27.0-32.0); Mean Corpuscular Volume 88.5 fL (80-94); Mean Platelet Vol. 9.8 fl (6.2-12.0); Monocyte# 1.03 X10^3/uL; Monocyte% 10.5 % (0-10); NRBC Flagged by Analyzer 0 % (0-5); Neutrophil # 7.11 X10^3/uL (2.7-7.7); Neutrophil % 72.7 % (47-70); Platelet Count 318 K/mm3 (150-450); RBC Distribution Width CV 14.2 % (11.6-14.6); RBC Distribution Width SD 45.9 fl (35.1-43.9); Red Blood Count 4.42 M/mm3 (4.6-6.2); White Blood Count 9.8 K/mm3 (4.4-11.0)
[2024-05-18 12:59] LABS: International Normalized Ratio 1.1; Prothrombin Time (Protime)PT. 13.9 SECONDS (11.7-14.9)
[2024-05-18 13:00] LABS: Partial Thromboplast Time 25.1 Seconds (24.1-36.2)
[2024-05-18 13:17] LABS: Anion Gap 10 (5-15); BUN 41 mg/dL (7-18); BUN/Creat Ratio 10.5 RATIO (10-20); Calcium,Total 9.3 mg/dL (8.5-10.1); Chloride 102 mmol/L (98-107); Creatinine, Serum 3.92 mg/dL (0.70-1.30); EST Glomerular Filtration Rate 16 mL/min (>60); Est Glom Filt Rate - Afr Amer 20 mL/min (>60); Estimated Creatinine Clearance 21.36 ml/min; Glucose 116 mg/dL (74-106); Potassium 4.2 mmol/L (3.5-5.1); Sodium Level 138 mmol/L (136-145); Troponin-I HS 11 pg/mL (3.0-78.0)
[2024-05-18] MEDS: 0.9% Normal Saline (500mL Bag) 500 ML 1000 ML IV (13:20)
--- NOTE | 2024-05-18 13:25 | RAD_ITS ---
PROCEDURE: AP UPRIGHT PORTABLE CHEST REASON FOR EXAM: Neuro deficit. Acute CVA suspected. TECHNIQUE: Frontal view of the chest. COMPARISON: Chest dated 04/29/2024. FINDINGS: The heart size is normal. Aorta is atherosclerotic and tortuous The lungs are clear. No mediastinal widening. Jeane are normal. No pleural effusions or pneumothoraces. Cardiac monitoring leads overlie the chest wall. Bilateral total humeral arthroplasties. Soft tissues unremarkable. RAD/Chest 1 View IMPRESSION: No active cardiopulmonary disease. Reading Location: [facility]
--- NOTE | 2024-05-18 15:52 | PCM.HP.STD ---
HPI - General General Date of Admission: 05/18/24 Date of Service: 05/18/24 Chief Complaint: difficulty speaking, poor po intake HPI Narrative YORDAN HENRIQUEZ, is a 64-year-old male with a history of hypertension, depression and anxiety, BPH presented [facility] ED 05/18/2024 with difficulty with his speech, recently admitted for acute respiratory failure secondary to bronchitis and asthma exacerbation as well as possible pneumonia, had an ASHLEY at the time as well. Also of note he had shoulder surgery 3 weeks ago. Patient had stroke alert in triage due to symptom onset at 10 AM and NIH of 2. Teleneurology evaluated and noted the patient had systolic in the 70s and it was felt that his symptoms may have been due to hypotension and acute illness but still recommended stroke workup. In the ED initially patient afebrile with heart rate of 106 and blood pressure 74/54. He was found to have a BUN of 41 and a creatinine of 3.92 up from 1.38 2 weeks ago. Acute stroke workup negative and patient given IV fluids with improvement in symptoms and blood pressure, hospitalist contacted for admission due to his ASHLEY and for CVA rule out. Patient evaluated at bedside with family, he was admitted and subsequently discharged 05/01/2024 after hospitalization for possible asthma exacerbation and suspected ASHLEY. At home he had been doing somewhat better except today he developed confusion difficulty speaking as well as blurred vision and was brought in, still having a little bit of a difficult time with his speech but reports his vision is almost back to normal and denied any other focal deficits. Patient does have some generalized shaking myoclonic jerks which she reports over the past month or so, suspect this is due to his gabapentin with his ASHLEY. Patient does report he has not been eating and drinking very well and yesterday was dizzy and nauseated, is also had headaches over the past couple days and had a little bit of chest pressure yesterday but the symptoms have resolved with increase in his blood pressure and fluids. [facility] Medical History Anxiety disorder, unspecified MDD (major depressive disorder) Skin cancer Osteoarthritis Hearing problem Bone fracture History of back problems Arthritis Alcohol abuse Migraines Hypertension Home Medications ?Medication ?Instructions ?Recorded ?Last Taken ?Type gabapentin 100 mg capsule 100 mg PO TID pain 08/12/23 Unknown History gabapentin 800 mg tablet 800 mg PO TID pain 08/12/23 Unknown History losartan 100 1 tab PO QDAY bp 08/12/23 Unknown History mg-hydrochlorothiazide 25 mg tablet meclizine 12.5 mg tablet 12.5 mg PO DAILY PRN vertigo 08/12/23 Unknown History meloxicam 15 mg tablet 15 mg PO DAILY vertigo 08/12/23 Unknown History tizanidine 4 mg tablet 4 mg PO TID PRN spasm 08/12/23 Unknown History bupropion HCl 100 mg tablet 200 mg (2 x 100 mg) PO BID anxiety 10/21/23 Unknown Rx #120 tabs duloxetine 30 mg capsule,delayed 30 mg PO QDAY mood 03/02/24 Unknown History release duloxetine 60 mg capsule,delayed 60 mg PO QDAY mood 03/02/24 Unknown History release mirtazapine 15 mg tablet 15 mg PO QHS #30 tabs 03/02/24 Unknown Rx albuterol sulfate 90 mcg/actuation 2 puff inhalation Q8H PRN 04/29/24 Unknown History aerosol inhaler bronchospasm aspirin 81 mg tablet,delayed 81 mg PO DAILY blood thinner 04/29/24 Unknown History release (Adult Aspirin Regimen) Held on 05/18/24. Instructions: surgery tamsulosin 0.4 mg capsule 0.4 mg PO QHS bph 04/29/24 Unknown History amlodipine 10 mg tablet 10 mg PO DAILY 30 days #30 tabs 05/01/24 Unknown Rx trazodone 50 mg tablet 25 - 50 mg PO QHS PRN PRN insomnia 05/18/24 Unknown History Allergy/AdvReac Type Severity Reaction Status Date / Time No Known Allergies Allergy Verified 04/29/24 21:45 Family History Other Alcoholism Arthritis Cancer Depression Mental disorder Myocardial infarction Respiratory disease Social History Smoking Status: Never smoker alcohol intake: former substance use type: does not use ROS ROS Narrative General: Denies fever/chills HENT: Has been having some intermittent headaches EYES: Had some blurry vision which is improving Resp: Denies overt current cough, denies new shortness of breath Cardiac: Denies chest pain at this time GI: Denies abdominal pain, denies changes in bowel, had some nausea yesterday : Denies changes in urination Extremity: Denies swelling MSK: Some generalized weakness Neuro: Denies any numbness/tingling Heme: Denies any bleeding or bruising Skin: Denies rashes Psychiatric: No complaints voiced Vital Signs Vital Signs Vital Signs: 05/18/24 12:36 05/18/24 12:39 05/18/24 12:40 Temperature 97.4 F L Temperature Source Temporal Pulse Rate 106 H Respiratory Rate 17 16 Blood Pressure 74/54 L 74/54 L Blood Pressure Mean 60 60 Pulse Ox 94 94 Oxygen Delivery Method Room Air Room Air Room Air 05/18/24 12:53 05/18/24 12:55 05/18/24 13:02 Temperature Temperature Source Pulse Rate 79 80 80 Respiratory Rate 18 18 18 Blood Pressure 96/75 96/75 Blood Pressure Mean 82 82 Pulse Ox 95 95 95 Oxygen Delivery Method Room Air Room Air 05/18/24 13:30 05/18/24 13:57 05/18/24 14:18 Temperature Temperature Source Pulse Rate 73 72 74 Respiratory Rate 18 15 16 Blood Pressure 84/62 L 105/72 121/95 H Blood Pressure Mean 69 83 103 Pulse Ox 98 94 94 Oxygen Delivery Method Room Air 05/18/24 15:00 Temperature Temperature Source Pulse Rate 71 Respiratory Rate 18 Blood Pressure 107/59 L Blood Pressure Mean 75 Pulse Ox Oxygen Delivery Method Weight Weight: 104.5 kg Body Mass Index (BMI) 36.1 Physical Exam Narrative General: Alert, no apparent distress HEENT: Atraumatic, normocephalic Eyes: Anicteric, normal conjunctiva, extraocular movements intact, pupils equal Neck: Supple Respiratory: Clear to auscultation bilaterally, normal respiratory effort Cardiovascular: Regular rate hythm GI: Soft, nontender, nondistended Extremities: No edema Musculoskeletal: Strength in right upper extremity difficult to assess given recent shoulder replacement however 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, 5 out of 5 left upper extremity, 5 out of 5 right lower extremity, 5 out of 5 left lower extremity Neuro: No overt focal neurological deficits, cranial nerves II through XII intact, did have difficulty bilaterally with [id number] and had some generalized tremors as well as myoclonic jerking Skin: No rashes appreciated Psych: Cooperative Results Lab / Micro Data 05/18/24 12:39 05/18/24 12:39 Labs: Laboratory Results - last 24 hr 05/18/24 12:39: WBC 9.8, RBC 4.42 L, Hgb 12.5 L, Hct 39.1 L, MCV 88.5, MCH 28.3, MCHC 32.0, RDW Std Deviation 45.9 H, RDW Coeff of Bala 14.2, Plt Count 318, MPV 9.8, Immature Gran % (Auto) 1.400 H, Neut % (Auto) 72.7 H, Lymph % (Auto) 13.3 L, [place] % (Auto) 10.5 H, Eos % (Auto) 1.4, Baso % (Auto) 0.7, Absolute Neuts (auto) 7.1, Absolute Lymphs (auto) 1.30, Nucleated RBC % 0, PT 13.9, INR 1.1, APTT 25.1, Sodium 138, Potassium 4.2, Chloride 102, Carbon Dioxide 26.0, Anion Gap 10, BUN 41 H, Creatinine 3.92 H, Estim Creat Clear Calc 21.36, Est GFR (MDRD) Af Amer 20 L, Est GFR (MDRD) Non-Af 16 L, BUN/Creatinine Ratio 10.5, Glucose 116 H, Calcium 9.3, Troponin I High Sens 11 05/18/24 13:10: Lactic Acid 2.0 Imaging Radiology Impression Brain CT 05/18/24 12:39 IMPRESSION: No acute abnormality is seen. The results were called to Dr. Tavares the referring physician. Reading Location: [facility]-IR-1 Head/Neck CTA 05/18/24 12:39 IMPRESSION: 1. Unremarkable CTA study of the brain and neck. 2. Suspected narrowing of the proximal left vertebral artery. Reading Location: [facility] Chest X-Ray 05/18/24 13:25 IMPRESSION: No active cardiopulmonary disease. Reading Location: [facility] Assessment & Plan Assessment/Plan (1) Acute hypotension: PLAN: Plan # Difficulty with speech and some facial sensory changes -Admit to tele -CT head and CTA head and neck unremarkable -MRI ordered -NIH q4hr -asa, statin -Echo -PT/OT/Speech eval -Teleneuro consult ordered -Hold BP medications to allow for permissive hypertension for 24 hours unless SBP greater than 220 or DBP greater than 120 or until stroke is ruled out # ASHLEY - was found to have a BUN of 41 and a creatinine of 3.92 up from 1.38 2 weeks ago -IV fluids -Supportive care -Will obtain bladder and kidney ultrasound -Obtain UA -Repeat in the a.m., can consider further workup if patient not improving or worsening -Hold home meloxicam # Hypotension -Resolved with IV fluids, suspect that this was volume related given his recent illness -Hold home antihypertensives -Continue IV fluids # Recent right shoulder surgery as well as multiple joint arthritis -Discussed decreasing gabapentin dose as I suspect that patient is not clearing the gabapentin given his significant decrease in creatinine clearance and this buildup is likely causing a lot of his myoclonic jerking, patient initially upset however when explaining the pathophysiology of the clearance he is agreeable, would uptitrate dosing as kidney function improves #Depression/anxiety -Continue home medications #Chronic BPH with obstruction -Continue home medications #DVT ppx: SCDs Bailey Gamez MD Charges/Coding Visit Charges Inpatient E&M: 90254 Init Hosp L2
--- NOTE | 2024-05-18 16:04 | MRI_ITS ---
PROCEDURE: BRAIN WITHOUT CONTRAST REASON FOR EXAM: Stroke, difficulty talking. TECHNIQUE: Multiplanar, multisequence MRI of the brain without intravenous gadolinium-based contrast. COMPARISON: CTA of the head and neck performed 05/18/2024 FINDINGS: No restricted diffusion to indicate acute infarct. No acute intracranial hemorrhage or extra-axial collection. Mild parenchymal volume loss is noted. Periventricular T2 FLAIR hyperintensities are nonspecific and likely due to chronic microvascular changes. Ventricles are normal in size and configuration, without midline shift or mass effect. The intracranial flow voids are preserved. Globes and orbits are normal. Cerebellopontine angles are clear. MRI/Brain without Contrast IMPRESSION: NO ACUTE INTRACRANIAL ABNORMALITY. NEGATIVE FOR ACUTE INFARCT. Reading Location: [id number]
--- NOTE | 2024-05-18 16:04 | ECHOCS_ITS ---
Reason For Study Reason For Study: TIA/CVA Procedure This was a 2D Doppler, Color Flow transthoracic echocardiogram. The study was technically difficult. Contrast injection was performed. Exam performed portable in patient room. Left Ventricle Normal size and thickness. The left ventricular ejection fraction is 65 %. No evidence for diastolic dysfunction. Right Ventricle Normal right ventricle. Atria The left and right atria are normal. Mitral Valve Mild mitral annular calcification. Trivial mitral valve insufficiency. Tricuspid Valve Normal tricuspid valve. Aortic Valve The aortic valve is not well visualized in the short axis view. Mild aortic stenosis. Mild (1+) aortic valve insufficiency. Pulmonic Valve The pulmonic valve is not well visualized. Great Vessels Normal sized aortic root. Pericardium/Pleural No pericardial effusion. Medication Diluted definity 1.5ml given slow IV push to enhance endocardial definition. MMode/2D Measurements & Calculations LVIDd: 5.6 cm IVSd: 0.97 cm LVOT diam: 2.0 cm LVIDs: 4.0 cm LVPWd: 0.97 cm RVDd: 4.0 cm FS: 29.7 % LVOT area: 3.1 cm2 Ao root diam: 3.6 cm LAV(MOD-bp): 63.1 ml LVAd ap4: 36.0 cm2 LA dimension: 3.4 cm LAV(MOD-bp) Indexed: 28.6 ml/m2 LVLd ap4: 7.9 cm LAV(MOD-sp2): 65.2 ml EDV(MOD-sp4): 130.9 ml LAV(MOD-sp4): 55.0 ml EDV(sp4-el): 138.6 ml LVAs ap4: 23.9 cm2 LVLs ap4: 7.6 cm ESV(MOD-sp4): 61.5 ml ESV(sp4-el): 63.5 ml EF(MOD-sp4): 53.1 % EF(sp4-el): 54.2 % SV(MOD-sp4): 69.5 ml SV(sp4-el): 75.1 ml LA A4 area: 20.1 cm2 SI(MOD-sp4): 31.5 ml/m2 LA dimension(2D): 3.3 cm RA A4 area: 13.1 cm2 TAPSE: 1.9 cm Time Measurements MV dec time: 0.19 sec Doppler Measurements & Calculations MV E max keny: 89.1 cm/sec Lat Peak E' Keny: 13.9 cm/sec Med Peak E' Keny: 10.9 cm/sec MV A max keny: 87.3 cm/sec E/E' lat: 6.4 E/E' med: 8.2 MV E/A: 1.0 MV V2 max: 97.1 cm/sec MV P1/2t max keny: 89.5 cm/sec Ao V2 max: 271.0 cm/sec MV max P.8 mmHg MV P1/2t: 61.9 msec Ao max P.4 mmHg MV V2 mean: 54.8 cm/sec MV dec slope: 423.6 cm/sec2 Ao V2 mean: 159.2 cm/sec MV mean P.4 mmHg MVA(P1/2t): 3.6 cm2 Ao mean P.3 mmHg MV V2 VTI: 29.9 cm Ao V2 VTI: 43.4 cm MVA(VTI): 3.2 cm2 AV (velocity ratio): 0.71 ALBERT(I,D): 2.2 cm2 ALBERT(V,D): 1.9 cm2 LV V1 max: 166.9 cm/sec SV(LVOT): 94.6 ml LV V1 max P.1 mmHg LV V1 mean P.8 mmHg LV V1 mean: 99.8 cm/sec LV V1 VTI: 30.8 cm ECHO/Echo Complete W/ Contrast Interpretation Summary Technically difficult study. The left ventricular ejection fraction is 65 %. Mild mitral annular calcificati on. Aortic valve not well-visualized in parasternal short axis. Consider mild aorti c valve stenosis with mean peak gradient of 12 mmHg. Mild aortic valve regurgitation. Ordering Physician: Bailey Gamez Performed By: Jason Ramirez RCS
[2024-05-18 17:49] LABS: Mucous, Urine 0 SEEN /hpf (<or=2+)
[2024-05-18 17:57] LABS: Color, Urine Yellow (Yellow); Glucose, Dipstick Normal (Normal); Ketone-Dipstick Negative (Negative); Leukocyte Esterase-Dipstick 25 /ul (Negative); Nitrite-Dipstick Negative (Negative); Occult Blood-Urine Negative /ul (Negative); Protein-Dipstick 30 mg/dl (Negative); Specific Gravity, Urine 1.015 (1.002-1.030); Urine Bilirubin Dipstick Negative (Negative); Urine Clarity Sl. Cloudy (Clear); Urine Urobilinogen Normal (Normal)
[2024-05-18 17:58] LABS: Reflex Lactate? Y
--- NOTE | 2024-05-18 18:01 | US_ITS ---
PROCEDURE: Kidney and bladder ultrasound REASON FOR EXAM: Renal failure TECHNIQUE: Multiple high-resolution sonographic images of the kidneys and bladder COMPARISON: None FINDINGS: Right kidney measures 11.4 x 5.0 x 6.6 cm. Left kidney measures 11.3 x 4.0 x 5.1 cm. No sizable shadowing renal calculi or hydronephrosis. Left renal cyst measuring up to 1.4 cm. Urinary bladder is within normal limits. Distended bladder volume measures 89 mL. US/Kidney and Bladder IMPRESSION: 1. No hydronephrosis. 2. Small left renal cysts. Reading Location: [facility]
[2024-05-18 18:22] LABS: Bacteria 2+ /hpf (None Seen); Red Blood Cells-Urine 0 SEEN /hpf (0-5); Squamous Epithelial Cells - UA 0-5 SEEN /hpf (0-5); White Blood Cells 0-5 SEEN /hpf (0-5)
[2024-05-18] MEDS: 0.9% Normal Saline (1000mL) 1,000 ML 75 ML IV (18:48)
[2024-05-18 18:58] LABS: Hemoglobin A1c 5.5 % (3.8-5.6)
[2024-05-18 19:07] LABS: Lactic Acid 0.8 mmol/L (0.4-1.9)
--- NOTE | 2024-05-18 20:10 | CM.ED ---
Social Work Reason for visit: stroke alert Patient was out with running errands when his speak became nonsensical and he had difficulty with hand coordination. brought him to ED for evaluation. was talkative, telling SW that she had been taking care of their daughter who had recent foot surgery and now was in need of assistance. SW stayed with while patient was out of room for testing. Emotional support provided. No further needs identified at this time. Jaja Harrington, CAMPAIGN DEVELOPER, CAR TRACER
[2024-05-18] MEDS: Mirtazapine 15 MG Tablet PO (22:36)
[2024-05-18] MEDS: buPROPion 100 MG Tablet 200 MG PO (22:36)
[2024-05-18] MEDS: Tamsulosin HCl 0.4 MG Capsule PO (22:36)
[2024-05-18] MEDS: Atorvastatin Calcium 80 MG Tablet PO (22:36)
[2024-05-18] MEDS: Gabapentin 300 MG Capsule PO (22:36)
[2024-05-19] VITALS (10 sets, daily range): BP systolic 117–148; BP diastolic 62–83; PULSE 76–87; RESP 16–18; TEMP 35.9–36.7; O2SAT 92–98; BMI 39.5
[2024-05-19] MEDS: Aspirin 81 MG TAB.CHEW PO (06:20)
[2024-05-19] MEDS: Gabapentin 300 MG Capsule PO ×3 (06:20→20:08)
--- NOTE | 2024-05-19 07:51 | PN.HOSP_ITS ---
Reason for Visit Reason for Visit: Diagnoses Hypotension, unspecified (05/18/24) Objective Data Objective Data Vital Signs: Vital Signs Temp Pulse Resp BP Pulse Ox O2 Del Method 98.0 F 82 18 117/63 95 Room Air 05/19/24 06:00 05/19/24 06:00 05/19/24 06:00 05/19/24 06:00 05/19/24 06:00 05/19/24 06:00 Oxygen Delivery Method Room Air Weight: 252 lb 6.868 oz Body Mass Index (BMI) 39.5 Intake & Output: Intake and Output for Last 24 Hours 05/17/24 05/18/24 05/19/24 23:59 23:59 23:59 Intake Total 500 / 800 300 / 300 Balance 500 / 800 300 / 300 Lab / Micro Data 05/19/24 07:17 05/19/24 07:17 Labs: Laboratory Results - last 24 hr 05/18/24 12:39: WBC 9.8, RBC 4.42 L, Hgb 12.5 L, Hct 39.1 L, MCV 88.5, MCH 28.3, MCHC 32.0, RDW Std Deviation 45.9 H, RDW Coeff of Bala 14.2, Plt Count 318, MPV 9.8, Immature Gran % (Auto) 1.400 H, Neut % (Auto) 72.7 H, Lymph % (Auto) 13.3 L , [place] % (Auto) 10.5 H, Eos % (Auto) 1.4, Baso % (Auto) 0.7, Absolute Neuts (auto) 7.1, Absolute Lymphs (auto) 1.30, Nucleated RBC % 0, PT 13.9, INR 1.1, APTT 25.1, Sodium 138, Potassium 4.2, Chloride 102, Carbon Dioxide 26.0, Anion Gap 10, BUN 41 H, Creatinine 3.92 H, Estim Creat Clear Calc 21.36, Est GFR (MDRD) Af Amer 20 L, Est GFR (MDRD) Non-Af 16 L, BUN/Creatinine Ratio 10.5, G lucose 116 H, Hemoglobin A1c 5.5, Calcium 9.3, Troponin I High Sens 11, TSH 1.520 05/18/24 13:10: Lactic Acid 2.0 05/18/24 17:40: Urine Color Yellow, Urine Clarity Sl. Cloudy, Urine pH 6.0, Ur Specific [place] 1.015, Urine Protein 30 H, Urine Glucose (UA) Normal, Urine Ketones Negative, Urine Occult Blood Negative, Urine Nitrite Negative, Urine Bilirubin Negative, Urine Urobilinogen Normal, Ur Leukocyte Esterase 25 H, Urine RBC 0 SEEN, Urine WBC 0-5 SEEN, Ur Squamous Epith Cells 0-5 SEEN, Urine Bacteria 2+, Urine Mucus 0 SEEN 05/18/24 18:36: Lactic Acid 0.8 Radiography Diagnostic Testing: Radiology Impression Brain CT 05/18/24 12:39 IMPRESSION: No acute abnormality is seen. The results were called to Dr. Tavares the referring physician. Reading Location: [facility]1 Head/Neck CTA 05/18/24 12:39 IMPRESSION: 1. Unremarkable CTA study of the brain and neck. 2. Suspected narrowing of the proximal left vertebral artery. Reading Location: [facility] Chest X-Ray 05/18/24 13:25 IMPRESSION: No active cardiopulmonary disease. Reading Location: [facility] Brain MRI 05/18/24 16:04 IMPRESSION: NO ACUTE INTRACRANIAL ABNORMALITY. NEGATIVE FOR ACUTE INFARCT. Reading Location: [facility] Renal Ultrasound 05/18/24 18:01 IMPRESSION: 1. No hydronephrosis. 2. Small left renal cysts. Reading [facility] Physical Exam Narrative Seen and examined. Patient is speech is back to normal. MRI brain is negative for acute infarct. Denies any chest pressure or tightness. No acute shortness of breath Physical exam General: Alert, Oriented x3, Cooperative HEENT: Atraumatic, PERRLA, EOMI, Normocephalic Oral: No Gingival or Mucosal Lesions/ Ulcerations Neck: Supple, No JVD, Negative Carotid Bruits Chest wall/Lungs: Air entry diminished in bilateral lung bases. No crepitation/rhonchi Cardiovascular: Regular rate, Regular Rhythm, Normal S1, Normal S2, No M/G/R Abdomen: Bowel Sounds Present, Soft, Non Tender, Non-Distended : No dysuria. No renal angle tenderness. No suprapubic tenderness. Extremities: No edema, Capillary Refill Less than 3 Seconds Skin: No rashes, No breakdown Musculoskeletal: Right shoulder surgical scar, healing well. No Tenderness to Palpation of Joints or Extremities Neurological: Cranial nerves II-XII grossly intact, DTR 2+/4. No acute focal neurological deficit. Psych/Mental Status: Normal Affect, Appropriate. Assessment & Plan Assessment/Plan (1) Acute hypotension: PLAN: Plan 64-year-old gentleman was admitted with slurred speech, hard time in talking. Recently had right shoulder surgery on 04/29/24. Chewing tobacco since age of 13 or 14. # Difficulty with speech and some facial sensory changes: Patient is admitted in telemetry. MRI brain did not show acute infarct. CTA and CT head and neck unremarkable. Patient was seen by neurologist and she signed off. Reported mild aortic valve stenosis with mean gradient 12 mmHg. Mild AR. Technically difficult study. -Admit to tele - # ASHLEY - was found to have a BUN of 41 and a creatinine of 3.92 up from 1.38 2 weeks ago. Repeat creatinine is better. Creatinine is 2.02. Continue IV fluid. UA WBC 0-5 cells. # Hypotension -Resolved with IV fluids, suspect that this was volume related given his recent illness -Hold home antihypertensives -Continue IV fluids # Recent right shoulder surgery as well as multiple joint arthritis -Discussed decreasing gabapentin dose as I suspect that patient is not clearing the gabapentin given his significant decrease in creatinine clearance and this buildup is likely causing a lot of his myoclonic jerking, patient initially upset however when explaining the pathophysiology of the clearance he is agreeable, would uptitrate dosing as kidney function improves #Depression/anxiety -Continue home medications #Chronic BPH with obstruction -Continue home medications #DVT ppx: SCDs Charges/Coding Visit Charges Inpatient E&M: 10018 Subs Hosp L2
[2024-05-19 08:21] LABS: Absolute Lymphocyte Count 1.18 X10^3/uL (0.83-4.51); Absolute Neutrophil Count 4.5 X10^3/uL (2.0-7.7); Basophil# 0.03 X10^3/uL; Basophil% 0.4 % (0-1); Eosinophil# 0.18 X10^3/uL; Eosinophils% 2.7 % (0-5); Hematocrit 36.9 % (40-54); Hemoglobin 11.8 g/dL (13.0-16.5); Lymphocyte # 1.18 X10^3/ul (0.83-4.51); Lymphocyte % 17.5 % (19-41); Mean Corpuscular Hgb 28.2 pg (27.0-32.0); Mean Corpuscular Volume 88.1 fL (80-94); Mean Platelet Vol. 9.7 fl (6.2-12.0); Monocyte# 0.76 X10^3/uL; Monocyte% 11.2 % (0-10); NRBC Flagged by Analyzer 0 % (0-5); Neutrophil # 4.51 X10^3/uL (2.7-7.7); Neutrophil % 66.7 % (47-70); Platelet Count 287 K/mm3 (150-450); RBC Distribution Width CV 14.4 % (11.6-14.6); RBC Distribution Width SD 46.4 fl (35.1-43.9); Red Blood Count 4.19 M/mm3 (4.6-6.2); White Blood Count 6.8 K/mm3 (4.4-11.0)
[2024-05-19 09:02] LABS: Anion Gap 6 (5-15); BUN 34 mg/dL (7-18); BUN/Creat Ratio 16.8 RATIO (10-20); Calcium,Total 9.2 mg/dL (8.5-10.1); Chloride 105 mmol/L (98-107); Cholesterol 189 mg/dL (200); Creatinine, Serum 2.02 mg/dL (0.70-1.30); EST Glomerular Filtration Rate 35 mL/min (>60); Est Glom Filt Rate - Afr Amer 43 mL/min (>60); Estimated Creatinine Clearance 43.48 ml/min; Glucose 91 mg/dL (74-106); High Density Lipoprotein 43 mg/dL; Potassium 3.6 mmol/L (3.5-5.1); Sodium Level 138 mmol/L (136-145); Triglycerides 131 mg/dL; Very Low Density Lipoprotein 26 mg/dL (5-40)
[2024-05-19] MEDS: DULoxetine Hcl 60 MG Capsule PO (09:04)
[2024-05-19] MEDS: DULoxetine Hcl 30 MG Capsule PO (09:04)
[2024-05-19] MEDS: buPROPion 100 MG Tablet 200 MG PO ×2 (09:04→20:09)
[2024-05-19] MEDS: 0.9% Normal Saline (1000mL) 1,000 ML 75 ML IV (09:05)
--- NOTE | 2024-05-19 11:17 | CASEMGMT ---
Social Work Per physician, pt negative for stroke. PHQ9 not completed. Zaheer Freeman, ISACC
--- NOTE | 2024-05-19 12:55 | PN.NEURO_ITS ---
Objective Data Objective Data Vital Signs: Vital Signs Temp Pulse Resp BP Pulse Ox O2 Del Method 97.0 F L 76 17 130/62 H 95 Room Air 05/19/24 10:00 05/19/24 10:00 05/19/24 10:00 05/19/24 10:00 05/19/24 10:00 05/19/24 10:00 Oxygen Delivery Method Room Air Weight: 114.5 kg Body Mass Index (BMI) 39.5 Intake & Output: Intake and Output for Last 24 Hours 05/17/24 05/18/24 05/19/24 23:59 23:59 23:59 Intake Total 500 / 800 1660 / 1660 Balance 500 / 800 1660 / 1660 Lab / Micro Data 05/19/24 07:17 05/19/24 07:17 Labs: Laboratory Results - last 24 hr 05/18/24 12:39: WBC 9.8, RBC 4.42 L, Hgb 12.5 L, Hct 39.1 L, MCV 88.5, MCH 28.3, MCHC 32.0, RDW Std Deviation 45.9 H, RDW Coeff of Bala 14.2, Plt Count 318, MPV 9.8, Immature Gran % (Auto) 1.400 H, Neut % (Auto) 72.7 H, Lymph % (Auto) 13.3 L , [place] % (Auto) 10.5 H, Eos % (Auto) 1.4, Baso % (Auto) 0.7, Absolute Neuts (auto) 7.1, Absolute Lymphs (auto) 1.30, Nucleated RBC % 0, PT 13.9, INR 1.1, APTT 25.1, Sodium 138, Potassium 4.2, Chloride 102, Carbon Dioxide 26.0, Anion Gap 10, BUN 41 H, Creatinine 3.92 H, Estim Creat Clear Calc 21.36, Est GFR (MDRD) Af Amer 20 L, Est GFR (MDRD) Non-Af 16 L, BUN/Creatinine Ratio 10.5, G lucose 116 H, Hemoglobin A1c 5.5, Calcium 9.3, Troponin I High Sens 11, TSH 1.520 05/18/24 13:10: Lactic Acid 2.0 05/18/24 17:40: Urine Color Yellow, Urine Clarity Sl. Cloudy, Urine pH 6.0, Ur Specific [place] 1.015, Urine Protein 30 H, Urine Glucose (UA) Normal, Urine Ketones Negative, Urine Occult Blood Negative, Urine Nitrite Negative, Urine Bilirubin Negative, Urine Urobilinogen Normal, Ur Leukocyte Esterase 25 H, Urine RBC 0 SEEN, Urine WBC 0-5 SEEN, Ur Squamous Epith Cells 0-5 SEEN, Urine Bacteria 2+, Urine Mucus 0 SEEN 05/18/24 18:36: Lactic Acid 0.8 05/19/24 07:17: WBC 6.8, RBC 4.19 L, Hgb 11.8 L, Hct 36.9 L, MCV 88.1, MCH 28.2, MCHC 32.0, RDW Std Deviation 46.4 H, RDW Coeff of Bala 14.4, Plt Count 287, MPV 9.7, Immature Gran % (Auto) 1.500 H, Neut % (Auto) 66.7, Lymph % (Auto) 17.5 L, [place] % (Auto) 11.2 H, Eos % (Auto) 2.7, Baso % (Auto) 0.4, Absolute Neuts (auto) 4.5, Absolute Lymphs (auto) 1.18, Nucleated RBC % 0, Sodium 138, Potassium 3.6, Chloride 105, Carbon Dioxide 28.0, Anion Gap 6, BUN 34 H, Creatinine 2.02 H, Estim Creat Clear Calc 43.48, Est GFR (MDRD) Af Amer 43 L, Est GFR (MDRD) Non-Af 35 L, BUN/Creatinine Ratio 16.8, Glucose 91, Calcium 9.2, Triglycerides 131, Cholesterol 189, LDL Cholesterol 120, VLDL Cholesterol 26, HDL Cholesterol 43 Radiography Diagnostic Testing: Radiology Impression Brain CT 05/18/24 12:39 IMPRESSION: No acute abnormality is seen. The results were called to Dr. Tavares the referring physician. Reading Location: [facility] Head/Neck CTA 05/18/24 12:39 IMPRESSION: 1. Unremarkable CTA study of the brain and neck. 2. Suspected narrowing of the proximal left vertebral artery. Reading Location: [facility] Chest X-Ray 05/18/24 13:25 IMPRESSION: No active cardiopulmonary disease. Reading [facility] Brain MRI 05/18/24 16:04 IMPRESSION: NO ACUTE INTRACRANIAL ABNORMALITY. NEGATIVE FOR ACUTE INFARCT. Reading Location: [id number] Renal Ultrasound 05/18/24 18:01 IMPRESSION: 1. No hydronephrosis. 2. Small left renal cysts. Reading [facility] Exam Neuro Neuro Narrative: Neurological examination: General: The patient appears nutritionally appropriate, well-groomed, and appears comfortable in no acute distress. Mental Status: The patient?s mental status was alert. Patient reported his age as 65. Language was intact. Cranial nerves: Visual little full, extra-ocular motion was intact. Face motion symmetric. Bilateral shoulder shrug was intact. Tongue was midline with normal movement. There was moderate dysarthria. Motor: Normal strength in all four extremities. No pronator drift. Sensation: Intact light touch bilaterally, no extinction. Coordination: Bilateral finger to nose was normal. There was dysmetria. Asterixis was noted in bilateral arms. Gait: deferred Subject: Neurology Subjective Patient reports he still has slurred speech and confusion. at bedside gives additional history. She reports the patient has had 2 months of intermittent confusion. Patient had outpatient right shoulder surgery 3 weeks ago and the next day he had to return to the ER for SOB. Since then he has had intermittent confusion and dysarthria, which was much worse yesterday. He was admitted yesterday for respiratory failure and was noted to have ARF (Cr 3.92, baseline Cr 1.38). Assessment and Plan: Stroke Assessment/Plan YORDAN HENRIQUEZ Jr. is a 64 year old right handed male with a history of HTN and OA who presents for evaluation of 3 month history of intermittent confusion and 3 week history of intermittent dysarthria, worse yesterday. At [place] [facility], telestroke showed NIHSS-1. CT brain negative. CTA head/neck negative. MRI brain DWI negative. Neurological examination shows confusion and dysarthria, as well as bilateral asterixis. NIHSS-2. ASSESSMENT/PLAN: Acute encephalopathy 1) Stroke ruled out with negative MRI brain. 2) Recommend maximizing underlying medical conditions are you are doing, including correction of renal failure. Will sign off. Please call us with further stroke related questions. Primary team messaged on backline.
--- NOTE | 2024-05-19 16:30 | CASEMGMT ---
KAYLEE SIMONS readmission note: Index admission: 04/30- 05/01: AE Asthma w/bronchitis and early PNA. Pt also w/ASHLEY. ?Recent rt shoulder surgery 04/29. Hx of history of hypertension, depression, anxiety, and BPH. ?Pt lives w/wive, independent @ baseline.See KAYLEE Flores CM, assess 04/30/24. Pt discharged home on RA w/Rx's for zithromax, amlodipine, mucinex, and prednisone, which was sent to [facility] pharmacy. He was instructed to hold meloxicam x 3 days & resume on lower dose. Also to hold losartan/hctz for 1 week and f/u with PCP w/repeat BMP. He was also to f/u Dr Dariusz Rueda in 1 month for PFT's. Current admission: Admitted 05/18 w/ASHLEY and CVA R/O. KAYLEE SIMONS to room to meet w/pt and to discuss readmission and discharge plans in place. Introduced self and role. and pt state pt did get new Rx's @ dc and was taking as prescribed. states pt was scheduled for 3 different labs to be drawn, but they received a call (she is not sure who called), and was informed he couldn't have them all drawn d/t being on Prednisone, but was able to have one of them drawn (she is not sure which one). Somehow there was some confusion re: igor appt, as appt was then scheduled with Dr Marleni Rueda by [facility] PCP, which pt did go to on 05/11. Sleep study was ordered, and to be done @ home 05/25, pending insurance approval. Pt has f/u appt for further labs to be drawn 05/31 @ [facility] and then appt w/[facility], Yadira Beebe, (Dr Marleni Rueda's office) on the same day, 05/31. Pt has not been to Dr Zuniga's office since discharge, has appt scheduled 06/15. states she can call to schedule a sooner hospital f/u visit @ dc. Noted in [facility] pt has an appt w/ Thea Dickson NP w/Dr Dariusz Rueda for PFT's tomorrow @ 9913. and pt were not aware of this appt. KAYLEE SIMONS placed call to cx this appt, but the office was already closed for the day. made aware and states she will call first thing in the morning and cx this appt and was provided w/[facility] office #. She states will f/u with Dr Marleni Rueda's office to ensure PFT's are scheduled there. Pt has seen [facility], for Dr Abdoulaye Herrera (ortho who did rt shoulder surgery) since index admission, stating was told everything is good and has f/u appt scheduled ?06/10. Pt has exercises to work on @ home and then they will discuss possible OP therapy after this next appt. has been providing transportation/taking pt to appts since pt's shoulder surgery in [place]. and will continue to do so until he is cleared to drive again. Pt wishes to return home @ dc and they deny having any discharge concerns or needs, Plan: Home w/ and discharge plans in place. Kathleen BARAJAS RN CM
[2024-05-19] MEDS: Atorvastatin Calcium 80 MG Tablet PO (20:09)
[2024-05-19] MEDS: Tamsulosin HCl 0.4 MG Capsule PO (20:09)
[2024-05-19] MEDS: Mirtazapine 15 MG Tablet PO (20:09)
[2024-05-20 01:18] VITALS: BMI 39.5
[2024-05-20 03:00] VITALS: BP 156/77; PULSE 82; RESP 16; TEMP 36.3; O2SAT 97
[2024-05-20 05:21] VITALS: BMI 40.0
[2024-05-20] MEDS: Gabapentin 300 MG Capsule PO ×2 (05:31→13:02)
[2024-05-20] MEDS: Aspirin 81 MG TAB.CHEW PO (08:39)
[2024-05-20] MEDS: buPROPion 100 MG Tablet 200 MG PO (08:39)
[2024-05-20] MEDS: DULoxetine Hcl 30 MG Capsule PO (08:40)
[2024-05-20] MEDS: DULoxetine Hcl 60 MG Capsule PO (08:40)
[2024-05-20 08:43] VITALS: BP 148/86; PULSE 74; RESP 17; TEMP 36.4; O2SAT 95
[2024-05-20 09:33] LABS: Anion Gap 4 (5-15); BUN 22 mg/dL (7-18); BUN/Creat Ratio 17.5 RATIO (10-20); Chloride 106 mmol/L (98-107); Creatinine, Serum 1.26 mg/dL (0.70-1.30); EST Glomerular Filtration Rate 61 mL/min (>60); Est Glom Filt Rate - Afr Amer 74 mL/min (>60); Glucose 91 mg/dL (74-106); Sodium Level 141 mmol/L (136-145)
--- NOTE | 2024-05-20 10:44 | DCINST_ITS ---
Discharge Instructions Diet Discharge Diet: No restrictions DC O2, CPAP, BIPAP needs Home O2 Discharge instructions: No Dressing / Incision Discharge Activity: Return to Normal Activity Weight Bearing Status: Weight bearing as tolerated Dressing / Incision Call your doctor if you observe: Fever of 101 or Higher, Coldness, Increased Pain, Numbness or Tingling, Change in Color, Inability to urinate, Inability to have a bowel movement, Shortness of breath, Dizziness, Fainting spells, Swelling in the ankles, Chest pain, Prolonged hiccupping, Increased palpitations (irregular heartbeat) and Calf discomfort Follow Up Care When: IN 2 WEEKS Test Results: Test results from this visit will be discussed in further detail at your follow- up appointment, if applicable. Discharge Plan Admission Admit Date/Time: 05/18/24 15:52 Attending Provider: Baron Pearson Primary Care Provider: Robbie Zuniga Consulting Providers: Bailey Gamez Instructions Additional Instructions / Restrictions: * Advised to decrease gabapentin 300 mg 3 times daily * Follow-up with the orthopedic surgeon in 2 weeks Discharge Orders/Prescriptions Prescriptions: New amlodipine 10 mg tablet 10 mg PO DAILY 30 Days Qty: 30 0RF atorvastatin 20 mg tablet 20 mg PO QHS 30 Days Qty: 30 0RF Continued tizanidine 4 mg tablet 4 mg PO TID PRN (Reason: spasm) meclizine 12.5 mg tablet 12.5 mg PO DAILY PRN (Reason: vertigo ) bupropion HCl 100 mg tablet 200 mg PO BID Qty: 120 2RF Rx Instructions: 2 by mouth every am and 2 by mouth every pm duloxetine 60 mg capsule,delayed release(DR/EC) 60 mg PO QDAY duloxetine 30 mg capsule,delayed release(DR/EC) 30 mg PO QDAY mirtazapine 15 mg tablet 15 mg PO QHS Qty: 30 2RF aspirin [Adult Aspirin Regimen] 81 mg tablet,delayed release (DR/EC) 81 mg PO DAILY albuterol sulfate 90 mcg/actuation HFA aerosol inhaler 2 puff INHALATION Q8H PRN (Reason: bronchospasm) Patient Comments: [NO ORIGINAL SIG] tamsulosin 0.4 mg capsule 0.4 mg PO QHS trazodone 50 mg tablet 25 - 50 mg PO QHS PRN PRN (Reason: insomnia) Held gabapentin 800 mg tablet 800 mg PO TID Hold Instructions: The dose is too high. Advised to decrease to 300 mg 3 times daily gabapentin 100 mg capsule 100 mg PO TID Hold Instructions: Hold it. losartan-hydrochlorothiazide 100-25 mg tablet 1 tab PO QDAY Hold Instructions: Hold for 1 week for ASHLEY. Discontinued meloxicam 15 mg tablet 15 mg PO DAILY Referrals / Follow Up: Robbie Zuniga DO [Primary Care Provider] - Within 2 Weeks Disposition Disposition (needs filled in before D/C Order can be placed): Home, Self Care
--- NOTE | 2024-05-20 10:50 | DS.PCM_ITS ---
Providers Date of Admission: 05/18/24 Date of Discharge: 05/20/24 Primary Care Physician: Dr. Robbie Zuniga, Reason For Visit: ASHLEY AND CVA R/O Diagnosis Discharge Diagnosis (1) Acute hypotension: Status: Acute Code(s): I95.9 - Hypotension, unspecified Plan 64-year-old gentleman was admitted with slurred speech, hard time in talking. Recently had right shoulder surgery on 04/29/24. Chewing tobacco since age of 13 or 14. # Difficulty with speech and some facial sensory changes: Patient is admitted in telemetry. MRI brain did not show acute infarct. CTA and CT head and neck unremarkable. Patient was seen by neurologist and she signed off. Reported mild aortic valve stenosis with mean gradient 12 mmHg. Mild AR. Technically difficult study. Patient was admitted in telemetry. 05/20: Stroke was ruled out. May be from medication. Patient on high-dose of gabapentin, mirtazapine and trazodone. - # ASHLEY - was found to have a BUN of 41 and a creatinine of 3.92 up from 1.38 2 weeks ago. Repeat creatinine is better. Creatinine is 2.02. Continue IV fluid. UA WBC 0-5 cells. 05/20: Repeat creatinine is 1.26. That is his baseline. Advised to hold HCTZ and lisinopril. May start gradually lisinopril after 2 week if creatinine is stable. Follow-up PCP # Hypotension with history of hypertension -Resolved with IV fluids, suspect that this was volume related given his recent illness -Hold home antihypertensives -Continue IV fluids 05/20: Hypotensive resolved. Probably due to high-dose of antihypertensive medication. Currently blood pressure is 148/86 and was in 150s. Amlodipine 10 mg daily prescription given. # Recent right shoulder surgery as well as multiple joint arthritis -Discussed decreasing gabapentin dose as I suspect that patient is not clearing the gabapentin given his significant decrease in creatinine clearance and this buildup is likely causing a lot of his myoclonic jerking, patient initially upset however when explaining the pathophysiology of the clearance he is agreeable, would uptitrate dosing as kidney function improves #Depression/anxiety -Continue home medications #Chronic BPH with obstruction -Continue home medications #DVT ppx: SCDs Discharge medication reconciliation done. Discharge follow-up instructions completed. Discharge process discussed with the patient and all questions were answered to patient's satisfaction. Follow with PCP in 1 to 2 weeks Total time spent, exact 35 minutes on discharge meds reconciliation, examination, coordination of care with nurses and ancillary staff, review of imaging and blood test and discussion with the patient on follow-up instructions. Medications at Discharge Home Medications gabapentin 100 mg capsule 100 mg PO TID pain 08/12/23 Held on 05/20/24. Instructions: Hold it. gabapentin 800 mg tablet 800 mg PO TID pain 08/12/23 Held on 05/20/24. Instructions: The dose is too high. Advised to decrease to 300 mg 3 times daily losartan 100 mg-hydrochlorothiazide 25 mg tablet 1 tab PO QDAY bp 08/12/23 Held on 05/20/24. Instructions: Hold for 1 week for ASHLEY. meclizine 12.5 mg tablet 12.5 mg PO DAILY PRN vertigo 08/12/23 tizanidine 4 mg tablet 4 mg PO TID PRN spasm 08/12/23 bupropion HCl 100 mg tablet 200 mg (2 x 100 mg) PO BID anxiety #120 tabs 10/21/23 duloxetine 30 mg capsule,delayed release 30 mg PO QDAY mood 03/02/24 duloxetine 60 mg capsule,delayed release 60 mg PO QDAY mood 03/02/24 mirtazapine 15 mg tablet 15 mg PO QHS #30 tabs 03/02/24 albuterol sulfate 90 mcg/actuation aerosol inhaler 2 puff inhalation Q8H PRN bronchospasm 04/29/24 aspirin 81 mg tablet,delayed release (Adult Aspirin Regimen) 81 mg PO DAILY blood thinner 04/29/24 tamsulosin 0.4 mg capsule 0.4 mg PO QHS bph 04/29/24 trazodone 50 mg tablet 25 - 50 mg PO QHS PRN PRN insomnia 05/18/24 amlodipine 10 mg tablet 10 mg PO DAILY 1 month #30 tabs 05/20/24 atorvastatin 20 mg tablet 20 mg PO QHS 1 month #30 tabs 05/20/24 Physical Exam Narrative Seen and examined. No acute issues overnight. Creatinine is improved. Follow-up with the orthopedic surgeon for short Patient is speech is back to normal. MRI brain is negative for acute infarct. Denies any chest pressure or tightness. No acute shortness of breath Physical exam General: Alert, Oriented x3, Cooperative HEENT: Atraumatic, PERRLA, EOMI, Normocephalic Oral: No Gingival or Mucosal Lesions/ Ulcerations Neck: Supple, No JVD, Negative Carotid Bruits Chest wall/Lungs: Air entry diminished in bilateral lung bases. No crepitation/rhonchi Cardiovascular: Regular rate, Regular Rhythm, Normal S1, Normal S2, No M/G/R Abdomen: Bowel Sounds Present, Soft, Non Tender, Non-Distended : No dysuria. No renal angle tenderness. No suprapubic tenderness. Extremities: No edema, Capillary Refill Less than 3 Seconds Skin: No rashes, No breakdown Musculoskeletal: Right shoulder surgical scar, healing well. No Tenderness to Palpation of Joints or Extremities Neurological: Cranial nerves II-XII grossly intact, DTR 2+/4. No acute focal neurological deficit. Psych/Mental Status: Normal Affect, Appropriate. Weight / BMI Weight Weight: 255 lb 11.779 oz Body Mass Index (BMI) 40.0 ABG / Lab / Microbiology Data 05/19/24 07:17 05/20/24 08:00 Laboratory: Laboratory Results - last 24 hr 05/20/24 08:00: Sodium 141, Potassium 4.0, Chloride 106, Carbon Dioxide 31.0, A nion Gap 4 L, BUN 22 H, Creatinine 1.26, Estim Creat Clear Calc 70.20, Est GFR (MDRD) Af Amer 74, Est GFR (MDRD) Non-Af 61, BUN/Creatinine Ratio 17.5, Glucose 91, Calcium 9.0 Radiography Diagnostic Testing: Radiology Impression Echocardiogram 05/18/24 16:04 Interpretation Summary Technically difficult study. The left ventricular ejection fraction is 65 %. Mild mitral annular calcification. Aortic valve not well-visualized in parasternal short axis. Consider mild aortic valve stenosis with mean peak gradient of 12 mmHg. Mild aortic valve regurgitation. Ordering Physician: Bailey Gamez Performed By: Jason Ramirez RCS D/C Instructions Discharge Diet: No restrictions Weight Bearing Status: Weight bearing as tolerated Call your doctor if you observe: Fever of 101 or Higher, Coldness, Increased Pain, Numbness or Tingling, Change in Color, Inability to urinate, Inability to have a bowel movement, Shortness of breath, Dizziness, Fainting spells, Swelling in the ankles, Chest pain, Prolonged hiccupping, Increased palpitations (irregular heartbeat) and Calf discomfort DC O2, CPAP, BIPAP Needs Home O2 Discharge instructions: No When: IN 2 WEEKS Meaningful Use Info Meaningful Use Meaningful Use Diagnoses (Choose all that apply): None applicable Ischemic Stroke Statin Dosing Therapy Reference: STATIN DOSE THERAPY REFERENCE: * Patients > 75 years receive moderate or high dose statin therapy. * Patients 75 years or YOUNGER should receive HIGH intensity statin dose unless contraindicated. You will be required to document reason for non-treatment if statin daily dose does not meet guidelines. HIGH DOSE STATIN THERAPY DAILY Atorvastatin > than or = to 40 mg Rosuvastatin > than or = to 20 mg Amlodipine + Atorvastatin > than or = to 2.5/40 mg Ezetimibe + Simvastatin 10/80 mg Simvastatin 80mg Discharge Plan Admission Admit Date/Time: 05/18/24 15:52 Attending Provider: Baron Pearson Primary Care Provider: Robbie Zuniga Consulting Providers: Bailey Gamez Instructions Additional Instructions / Restrictions: * Advised to decrease gabapentin 300 mg 3 times daily * Follow-up with the orthopedic surgeon in 2 weeks Discharge Orders/Prescriptions Prescriptions: New amlodipine 10 mg tablet 10 mg PO DAILY 30 Days Qty: 30 0RF atorvastatin 20 mg tablet 20 mg PO QHS 30 Days Qty: 30 0RF Continued tizanidine 4 mg tablet 4 mg PO TID PRN (Reason: spasm) meclizine 12.5 mg tablet 12.5 mg PO DAILY PRN (Reason: vertigo ) bupropion HCl 100 mg tablet 200 mg PO BID Qty: 120 2RF Rx Instructions: 2 by mouth every am and 2 by mouth every pm duloxetine 60 mg capsule,delayed release(DR/EC) 60 mg PO QDAY duloxetine 30 mg capsule,delayed release(DR/EC) 30 mg PO QDAY mirtazapine 15 mg tablet 15 mg PO QHS Qty: 30 2RF aspirin [Adult Aspirin Regimen] 81 mg tablet,delayed release (DR/EC) 81 mg PO DAILY albuterol sulfate 90 mcg/actuation HFA aerosol inhaler 2 puff INHALATION Q8H PRN (Reason: bronchospasm) Patient Comments: [NO ORIGINAL SIG] tamsulosin 0.4 mg capsule 0.4 mg PO QHS trazodone 50 mg tablet 25 - 50 mg PO QHS PRN PRN (Reason: insomnia) Held gabapentin 800 mg tablet 800 mg PO TID Hold Instructions: The dose is too high. Advised to decrease to 300 mg 3 times daily gabapentin 100 mg capsule 100 mg PO TID Hold Instructions: Hold it. losartan-hydrochlorothiazide 100-25 mg tablet 1 tab PO QDAY Hold Instructions: Hold for 1 week for ASHLEY. Discontinued meloxicam 15 mg tablet 15 mg PO DAILY Referrals / Follow Up: Robbie Zuniga DO [Primary Care Provider] - Within 2 Weeks Disposition Disposition (needs filled in before D/C Order can be placed): Home, Self Care Charges/Coding Visit Charges Inpatient E&M: 16970 Disch Hosp >30min
[2024-05-20 11:03] VITALS: BMI 40.0
--- NOTE | 2024-05-20 12:34 | CASEMGMT ---
Patient has order for discharge. RN CM in to discuss needs at discharge, at bedside. Patient denies needs or help at discharge. Patient had no further questions or concerns.
== END 2024-05-20 13:07 | disposition home or self-care (01) | DRG 315 ==
LOC: ED 14:34 → PCU 17:38
PROVIDERS: Admitting Provider Internal Medicine; Emergency Provider Emergency Medicine; PCP Student in an Organized Health Care Education/Training Program; Visit Provider Internal Medicine
DX: I95.9 Hypotension, unspecified (principal); N17.9 Acute kidney failure, unspecified; G93.40 Encephalopathy, unspecified; R47.01 Aphasia; N13.8 Other obstructive and reflux uropathy; F32.A Depression, unspecified; I10 Essential (primary) hypertension; I35.1 Nonrheumatic aortic (valve) insufficiency; E66.9 Obesity, unspecified; E86.0 Dehydration; M19.011 Primary osteoarthritis, right shoulder; F17.220 Nicotine dependence, chewing tobacco, uncomplicated; N40.1 Benign prostatic hyperplasia with lower urinary tract symptoms; Z68.39 Body mass index [BMI] 39.0-39.9, adult
CPT/HCPCS: 36415; 70450; 70496; 70498; 70551; 71045; 76770; 80048; 80061; 81001; 83036; 83605; 84443; 84484; 85025; 85610; 85730; 92522; 93005; 93306; 94668; 94762; 97162; 97802; 99285; Q9957; Q9967; A4216; C8929

== ENCOUNTER 2024-05-28 10:44 | Emergency (ER) | payer MEDICARE, SELFPAY ==
[2024-05-28 10:45] VITALS: BP 174/92; PULSE 81; RESP 14; TEMP 37.2; O2SAT 100; BMI 88.2
--- NOTE | 2024-05-28 10:52 | ED.RN ---
PT STATES THAT I POPPED MY SHOULDER BACK IN PT REQUESTS TO LEAVE WITHOUT BEING SEEN. EDUCATED TO APPLY HOME BRACE SOON POSSIBLE
== END 2024-05-28 10:52 | disposition left against medical advice (07) ==
LOC: ED 10:54
PROVIDERS: PCP Student in an Organized Health Care Education/Training Program
DX: T14.90XA Injury, unspecified, initial encounter (principal)

== ENCOUNTER 2024-07-02 18:54 | Emergency (ER) | payer MEDICARE, SELFPAY ==
[2024-07-02 18:55] VITALS: BP 154/74; PULSE 93; RESP 17; TEMP 35.9; O2SAT 95; BMI 39.4
--- NOTE | 2024-07-02 19:35 | EX.ED.DYSGE1 ---
HPI <MITCH Renner - Last Filed: 07/02/24 20:49> History of Present Illness Chief Complaint: Other, Pain/Inj Narrative Narrative: Patient presenting today with concerns for his right-sided interscalene nerve block catheter being stuck. He had a right shoulder replacement performed by Dr. Herrera at the [facility] on 06/28/2024. He had the nerve block placed the same day, this was hooked up to a portable pain pump. Patient was told that he could pull the catheter out from the backside today. He and his tried to pull it out but were unsuccessful, it feels like the catheter is caught, therefore they present for evaluation. He otherwise is doing well postop, no fevers, chills, or significant pain to his right shoulder. [facility] <MITCH Renner - Last Filed: 07/02/24 20:49> [facility] Medical History Tobacco abuse Essential hypertension Anxiety disorder, unspecified MDD (major depressive disorder) Skin cancer Osteoarthritis Hearing problem Bone fracture History of back problems Arthritis Alcohol abuse Migraines Hypertension Home Medications ?Medication ?Instructions ?Recorded ?Last Taken ?Type gabapentin 100 mg capsule 100 mg PO TID pain 08/12/23 Unknown History Held on 05/20/24. Instructions: Hold it. gabapentin 800 mg tablet 800 mg PO TID pain 08/12/23 Unknown History Held on 05/20/24. Instructions: The dose is too high. Advised to decrease to 300 mg 3 times daily losartan 100 1 tab PO QDAY bp 08/12/23 Unknown History mg-hydrochlorothiazide 25 mg tablet Held on 05/20/24. Instructions: Hold for 1 week for ASHLEY. meclizine 12.5 mg tablet 12.5 mg PO DAILY PRN vertigo 08/12/23 Unknown History tizanidine 4 mg tablet 4 mg PO TID PRN spasm 08/12/23 Unknown History bupropion HCl 100 mg tablet 200 mg (2 x 100 mg) PO BID anxiety 10/21/23 Unknown Rx #120 tabs duloxetine 30 mg capsule,delayed 30 mg PO QDAY mood 03/02/24 Unknown History release duloxetine 60 mg capsule,delayed 60 mg PO QDAY mood 03/02/24 Unknown History release mirtazapine 15 mg tablet 15 mg PO QHS mental health #30 tabs 03/02/24 Unknown Rx albuterol sulfate 90 mcg/actuation 2 puff inhalation Q8H PRN 04/29/24 Unknown History aerosol inhaler bronchospasm aspirin 81 mg tablet,delayed 81 mg PO DAILY blood thinner 04/29/24 Unknown History release (Adult Aspirin Regimen) tamsulosin 0.4 mg capsule 0.4 mg PO QHS bph 04/29/24 Unknown History trazodone 50 mg tablet 25 - 50 mg PO QHS PRN PRN insomnia 05/18/24 Unknown History amlodipine 10 mg tablet 10 mg PO DAILY 1 month #30 tabs 05/20/24 Unknown Rx atorvastatin 20 mg tablet 20 mg PO QHS 1 month #30 tabs 05/20/24 Unknown Rx Allergy/AdvReac Type Severity Reaction Status Date / Time No Known Allergies Allergy Verified 07/02/24 18:58 Family History Other Alcoholism Arthritis Cancer Depression Mental disorder Myocardial infarction Respiratory disease Social History (Updated 07/02/24 @ 20:09 by Rachele Crews) household members: spouse and children housing: house Smoking Status: Never smoker alcohol intake: former substance use type: does not use ROS <MITCH Renner - Last Filed: 07/02/24 20:49> ROS ED Constitutional Constitutional ED: Denies chills or fever(s) Cardiovascular Cardiovascular: Denies chest pain Respiratory/Chest Respiratory/Chest: Denies dyspnea Gastrointestinal Gastrointestinal: Denies abdominal pain, nausea or vomiting Musculoskeletal Musculoskeletal: Denies arthralgias Integumentary Denies rash Neurologic Neurologic: Denies weakness EXAM <MITCH Renner - Last Filed: 07/02/24 20:49> Physical Exam Const Vital Signs: 07/02/24 18:55 07/02/24 19:45 07/02/24 20:23 Temperature 96.7 F L 96.7 F L Temperature Source Temporal Pulse Rate 93 93 Respiratory Rate 17 17 Respiratory Effort Normal Non-Labored Respiratory Pattern Normal Blood Pressure 154/74 H 148/80 H Blood Pressure Mean 100 102 Pulse Ox 95 95 Oxygen Delivery Method Room Air Positive well nourished, well developed and no apparent distress General Appearance ED: well developed HEENT Reports normocephalic and head/scalp atraumatic Mouth ED: Yes moist mucous membranes normal Eyes PERRL and EOMs intact bilaterally Neck full ROM and supple Chest Wall inspection of chest normal Resp normal respiratory effort and clear to auscultation bilaterally Cardio regular rate and regular rhythm Back/Spine normal ROM and normal to inspection Extremity normal to inspection Extremity Narrative: Right shoulder maintained in a sling. Bandages covering surgical incisions. Right sided interscalene catheter placed. No erythema, purulent discharge, or signs of infection to the insertion site. Neuro oriented x3, moves all extremities, no focal motor deficits and no sensory deficits noted Sensorium / Orientation: awake and alert Psych mental status grossly normal and thought process normal Skin no rashes or lesions noted and no wounds <Girma Larry MD - Last Filed: 07/02/24 23:54> Physical Exam Const Vital Signs: 07/02/24 18:55 07/02/24 19:45 07/02/24 20:23 Temperature 96.7 F L 96.7 F L Temperature Source Temporal Pulse Rate 93 93 Respiratory Rate 17 17 Respiratory Effort Normal Non-Labored Respiratory Pattern Normal Blood Pressure 154/74 H 148/80 H Blood Pressure Mean 100 102 Pulse Ox 95 95 Oxygen Delivery Method Room Air MDM <MITCH Renner - Last Filed: 07/02/24 20:49> [facility] Narrative Medical decision making narrative: Patient presenting today due to not being able to remove his right sided interscalene catheter that was placed for postop pain due to having a right shoulder replacement on 06/28 at the [facility]. He was told to remove the catheter today but was unsuccessful. He otherwise is well-appearing with no acute complaints. He has no erythema, purulent discharge, or signs of infection to the catheter site. I did try to remove the catheter but it is catching on something under the skin and I did not want to cause any injury to the area, therefore I left it in place. I did speak with Ike one of the residents at the pain service clinic with the [facility], he recommended leaving the catheter in place and having them follow-up tomorrow at noon or Thursday and [facility] in the ED. They will then remove the catheter for him. He also recommended I cut off the connector and apply a Tegaderm over the remaining catheter which was done. Patient and his are comfortable with this plan and report that they will go there tomorrow. He will be discharged home in stable condition. <Girma Larry MD - Last Filed: 07/02/24 23:54> [facility] Treatment and Re-Evaluation :: Dr. Larry: I have personally performed a face to face assessment of the patient and have reviewed the MARCELLO Note. I performed a substantive portion of the visit including all aspects of the following. My swanson findings include: History is patient has analgesic catheter placed in right trapezius/interscalene that was placed by [facility] pain management for shoulder surgery 4 days ago. Was supposed to remove it at home but unable to do so. Exam is afebrile. Vital signs noted. Positive catheter and right trapezius muscle, exiting distally. Medical Decision Making: Patient was supposed to be able to remove catheter at home without difficulty. I did pull traction on it and it feels like it is adhered in place, and there is resistance to removal. With fear of breaking off catheter inside the subcutaneous tissue/muscle, patient was discussed with resident at [facility] with anesthesia. PA was told to cut the catheter at the connector, and taped to the body and that they should come to the emergency department tomorrow or Thursday for removal. I do not think that attempt should be made to remove it here in fear that the catheter would break as it is very small in caliber and he would have foreign body stuck within his subcutaneous tissue. Disposition is discharged home in stable condition. 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, H/O shoulder replacement Instructions: ED Post Op Wound Check, General Prescriptions: No Action tizanidine 4 mg tablet 4 mg PO TID PRN (Reason: spasm) gabapentin 800 mg tablet 800 mg PO TID gabapentin 100 mg capsule 100 mg PO TID losartan-hydrochlorothiazide 100-25 mg tablet 1 tab PO QDAY meclizine 12.5 mg tablet 12.5 mg PO DAILY PRN (Reason: vertigo ) bupropion HCl 100 mg tablet 200 mg PO BID Qty: 120 2RF Rx Instructions: 2 by mouth every am and 2 by mouth every pm duloxetine 60 mg capsule,delayed release(DR/EC) 60 mg PO QDAY duloxetine 30 mg capsule,delayed release(DR/EC) 30 mg PO QDAY mirtazapine 15 mg tablet 15 mg PO QHS Qty: 30 2RF aspirin [Adult Aspirin Regimen] 81 mg tablet,delayed release (DR/EC) 81 mg PO DAILY albuterol sulfate 90 mcg/actuation HFA aerosol inhaler 2 puff INHALATION Q8H PRN (Reason: bronchospasm) Patient Comments: [NO ORIGINAL SIG] tamsulosin 0.4 mg capsule 0.4 mg PO QHS trazodone 50 mg tablet 25 - 50 mg PO QHS PRN PRN (Reason: insomnia) amlodipine 10 mg tablet 10 mg PO DAILY 30 Days Qty: 30 0RF atorvastatin 20 mg tablet 20 mg PO QHS 30 Days Qty: 30 0RF Primary Care Provider: Robbie Zuniga Referrals: Robbie Zuniga DO [Primary Care Provider] - Activity Restrictions/Additional Instructions: Follow-up with the pain services with the [facility] either tomorrow at noon or Thursday. Print Language: Turkmen Disposition Disposition: Home, Self Care Discharge Date/Time: 07/02/24 20:23
[2024-07-02 20:23] VITALS: BP 148/80; PULSE 93; RESP 17; TEMP 35.9; O2SAT 95
== END 2024-07-02 20:23 | disposition home or self-care (01) ==
PROVIDERS: Emergency Provider Emergency Medicine; PCP Student in an Organized Health Care Education/Training Program; Referring Provider Emergency Medicine; Visit Provider Emergency Medicine
DX: M25.511 Pain in right shoulder (principal); I10 Essential (primary) hypertension; Z96.611 Presence of right artificial shoulder joint; Z79.82 Long term (current) use of aspirin; F41.9 Anxiety disorder, unspecified; F32.9 Major depressive disorder, single episode, unspecified; Y82.8 Other medical devices associated with adverse incidents
CPT/HCPCS: 99282